=== PATIENT | male | born 1945 | race Caucasian/White ===

== ENCOUNTER 2019-06-22 12:40 | Outpatient (CLI) | payer MEDICARE, MEDICAID, SELFPAY ==
--- NOTE | 2019-06-22 12:50 | CT_ITS ---
WS: [id number] CTA ABDOMEN PELVIS TECHNIQUE: Noncontrast plus contrast enhanced CTA of the abdominal aorta and pelvis with coronal and sagittal reformatted images and additional MIP Images. CLINICAL INFORMATION: AAA COMPARISON: October 27, 2017 DLP: [id number] scans at [facility] use at least one of these dose optimization techniques: automat ed exposure control; mA and/or kV adjustment per patient size (includes targeted exams where dose is matched to clinical indication); or iterative reconstruction. FINDINGS: Prior postoperative changes abdominal aorta endograft placement with excluded aneurysm sac. Aneurysm sac today measures 4.6 x 4.9 x 4.8 cm unchanged since . Small lobulated endoleak along the di stal stent just above the bifurcation dorsally is unchanged. Stable protruding lobulated contrast opa cified aneurysm sac in this location. Bilateral common iliac extension of endograft. 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 This measures approximately 11 mm. Celiac and superior mesenteric arteries are patent. Both proximal renal arteries are patent. Normal r enal parenchymal enhancement. Unchanged bilateral renal cysts. Cholelithiasis. Fat-containing umbilical hernia. Calcified prostate. Stable small left adrenal adenoma. Chronic compr ession of the L1 vertebral body. CT/CT angio abdomen pelvis [id number] IMPRESSION: 1. Again seen is the abdominal aortic endograft with biiliac extension. Stable small lobulated endoleak along the dorsal stent just above the bifurcation. Th is is unchanged in appearance. 2. Excluded aneurysm sac is stable in size unchanged. 3. 11 mm right common iliac artery aneurysm along the distal stent is partiall y thrombosed today 4. Cholelithiasis. 5. Stable renal cysts.
[2019-06-22 14:00] LABS: Blood Urea Nitrogen 23 mg/dL (8-23)
[2019-06-22] MEDS: iodixanol 320 mg/mL 100mL Btl IV (14:13)
== END 2019-06-22 12:41 | disposition home or self-care (01) ==
LOC: RAD 12:41
PROVIDERS: Family Provider Family Medicine; PCP Family Medicine; Visit Provider Thoracic Surgery (Cardiothoracic Vascular Surgery)
DX: I71.4 Abdominal aortic aneurysm, without rupture (principal); K42.9 Umbilical hernia without obstruction or gangrene; D35.02 Benign neoplasm of left adrenal gland; I72.3 Aneurysm of iliac artery; N28.1 Cyst of kidney, acquired; K80.20 Calculus of gallbladder without cholecystitis without obstruction; T82.898A Other specified complication of vascular prosthetic devices, implants and grafts, initial encounter; Y83.2 Surgical operation with anastomosis, bypass or graft as the cause of abnormal reaction of the patient, or of later complication, without mention of misadventure at the time of the procedure
CPT/HCPCS: 74174; 82565; 84520; Q9967

== ENCOUNTER 2019-07-19 14:12 | Outpatient (CLI) | payer MEDICARE, MEDICAID, SELFPAY ==
--- NOTE | 2019-07-19 14:29 | XR_ITS ---
WS: [id number] LEFT HIP HISTORY: hip pain COMPARISON: None available. LEFT hip: No acute fracture or dislocation. Moderate osteophytic ridging around the acetabulum. Hyper trophic bone formation from the lateral acetabulum. There is mild narrowing of the hip joint. Sclerot ic focus projecting over the LEFT femoral neck measures 17 mm. This corresponds to an ossific density seen posterior to the femoral neck on a prior CT. May be a loose body within the joint. Could be con tiguous with the bone and an osteophyte. XR/XR hip LT 2-3V wo/w pel* [id number] IMPRESSION: 1. No hip fracture. 2. Mild hip joint arthritis. 3. Loose body versus osteophyte posterior to the LEFT femoral neck. Also seen on a prior CT from 06/22/2019.
== END 2019-07-19 14:13 | disposition home or self-care (01) ==
LOC: RADWPI 14:17
PROVIDERS: Family Provider Family Medicine; PCP Family Medicine; Visit Provider Family Medicine
DX: M25.752 Osteophyte, left hip (principal); M13.852 Other specified arthritis, left hip; M25.552 Pain in left hip
CPT/HCPCS: 73502

== ENCOUNTER 2019-10-19 15:22 | Inpatient (IN) | payer MEDICARE, MEDICAID, SELFPAY ==
[2019-10-19] VITALS (14 sets, daily range): BP systolic 153–188; BP diastolic 87–123; PULSE 60–96; RESP 12–26; TEMP 36.6–36.8; O2SAT 94–100; BMI 21.2
--- NOTE | 2019-10-19 15:23 | XR_ITS ---
WS: [id number] PORTABLE CHEST HISTORY: injury COMPARISON: 09/09/2017 Moderate size LEFT pneumothorax with subcutaneous emphysema. No midline shift. Small LEFT pleural effusion. RIGHT lung is clear. Cardiac size: Normal. Mediastinum/Aorta: Normal mediastinum. No osseous abnormality seen. Notified Meg Vallejo MD at 10/19/2019 3:38 PM. XR/XR chest 1V portable [id number] IMPRESSION: Moderate left-sided pneumothorax with subcutaneous emphysema. Small LEFT effusion with no rib fracture identified.
[2019-10-19] MEDS: morphine 4 mg/mL SDV 1 mL IVP (15:43)
[2019-10-19] MEDS: ondansetron 2 mg/ML SDV 2 mL 4 MG IVP (15:43)
[2019-10-19] MEDS: lidocaine 1% INJ 20 mL 10 ML INTRADERMA (16:07)
[2019-10-19] MEDS: fentaNYL 50 mcg/mL INJ 2mL 100 MCG IVP (16:07)
[2019-10-19 16:08] LABS: Basophils % 0.1 %; Hematocrit 45.8 % (42.0-52.0); Hemoglobin 14.8 g/dL (11.7-16.6); Lymphocytes # 1.3 10^3/uL (0.8-4.8); Lymphocytes % 10.7 %; Mean Corpuscular HGB Conc 32.3 g/dL (30.0-36.0); Mean Corpuscular Hemoglobin 30.6 pg (28.0-34.0); Mean Corpuscular Volume 94.8 fL (80-94); Monocytes # 1.3 10^3/uL (0.2-0.9); Monocytes % 10.8 %; Neutrophils # 9.3 10^3/uL (1.8-7.7); Neutrophils % 77.9 %; Nucleated Red Blood Cells % 0 %; Platelet Count 233 10^3/cmm (130-400); Red Blood Count 4.83 10^6/uL (4.1-5.3); Red Cell Distribution Width 15.8 % (12.1-15.1); White Blood Count 11.9 10^3/uL (4.0-10.0)
--- NOTE | 2019-10-19 16:09 | PC.NURSE ---
Dr. Cortez performed decompression of the left lung due to a pneumothorax.
--- NOTE | 2019-10-19 16:10 | XR_ITS ---
WS: [id number] PORTABLE CHEST HISTORY: post chest tube placement COMPARISON: Chest radiograph earlier the same day. Interval placement of a small bore LEFT chest tube. Catheter projects over the upper LEFT thorax. Ravindra y tiny residual apical pneumothorax. Much better aeration of the LEFT lung. No laceration identified. Small LEFT pleural effusion. Cardiac size: Normal. Mediastinum/Aorta: Mild atherosclerosis aorta. No osseous abnormality seen. XR/XR chest 1V portable [id number] IMPRESSION: Interval placement of a smallbore LEFT chest tube with near complete resolution of the pneumothorax.
[2019-10-19] MEDS: midazolam 1 mg/mL INJ 2 mL IVP (16:11)
[2019-10-19 16:18] LABS: INR 1.09 (0.8-1.2)
[2019-10-19 16:19] LABS: Partial Thromboplastin Time 28.3 SECONDS (23.9-36.7)
[2019-10-19 16:23] LABS: Alanine Aminotransferase 20 U/L (0-41); Alkaline Phosphatase 18 IU/L (40-130); Anion Gap 18.8 (5-19); Aspartate Amino Transferase 25 U/L (0-40); Blood Urea Nitrogen 25 mg/dL (8-23); Calcium 10.2 mg/dL (8.5-10.5); Carbon Dioxide 28 mmol/L (22-29); Chloride 98 mmol/L (98-107); Creatinine Clr Calc Pharmacy 61.3471; Globulin 2.3 g/dL (1.3-4.6); Glucose 136 mg/dL (65-115); Osmolality Calculated 291 mOsm/kg (285-295); Potassium 3.8 mmol/L (3.5-5.1); Sodium 141 mmol/L (136-145); Total Bilirubin 0.8 mg/dL (0.15-1.2); Total Protein 6.3 g/dL (6.6-8.7)
[2019-10-19] MEDS: pantoprazole DR 40 mg Tablet PO (16:25)
[2019-10-19] MEDS: enoxaparin 40 mg/0.4 mL Syringe SUBCUT (16:25)
--- NOTE | 2019-10-19 16:35 | P.OP_ITS ---
Operative Report Date of procedure: October 19, 2019 Pre-op Diagnosis: Traumatic left pneumothorax Post-op diagnosis: same Procedure Done: 13 Azerbaijani thoracic vent placement on left side Pathology: none sent Anesthesia: Local (6 cc 1% lidocaine infiltrated locally) Complications: None: Chest x-ray pending Condition: stable Disposition: ICU Procedure: After careful positioning, patient received a total of 1 mg of Versed and 50 micrograms of fentanyl slow IV with continuous monitoring of heart rate, blood pressure, EKG, and O2 saturation. His left anterior chest wall was then sterilely prepped and draped. 1% lidocaine was infiltrated in the mid clavicular line over the second intercostal space. A #11 scalpel blade was used to incise the skin. Next, a trocar 13 Azerbaijani thoracic vent was inserted through the incision and then by direct firm and controlled pressure into the [left/right] pleural space where the vent was advanced over the trocar as it was removed. There was a prompt return of air under pressure. The vent was secured to the skin with adhesive tabs and also with 2-0 silk suture. The vent was then connected to Pleur-evac suction where further air was evacuated. He noticed slowly improving and ease of respirations. Vital signs remained stable throughout the procedure. Dressings were secured. Breath sounds are now improved. Chest x-ray is pending. Dr. Drake supervised conscious sedation.
--- NOTE | 2019-10-19 16:38 | P.HP_ITS ---
Providers/Chief Complaint Admitting Physician: Marquez Cortez MD Primary Care Provider: Keith Rutledge DO Chief Complaint: TRAUMATIC PNEUMOTHORAX History of Present Illness Dieter Figueroa is a 74 year old male presents after falling against a trailer hitch 2 days ago striking his anterior lateral left side. He complains of soreness in the region and shortness of breath. Chest x-ray revealed approximately a 25 to 30% left pneumothorax. It is noted that the chest x-ray was labeled incorrectly and was reversed. We have confirmed the area of trauma as well as by exam some decreased breath sounds in the left apex. He is requiring oxygen mask as well as nasal cannula to maintain saturations. He is not tachypneic. Vital signs are stable. I have reviewed the x-ray and history personally with Dr. Drake who supervised conscious sedation for planned thoracic vent placement. I performed a previous EVAR for infrarenal AAA He has chronic back pain from a vertebral fracture years ago after falling from a deer stand. He has been on longstanding oxycodone and is managed by Dr. Rutledge. Review of Systems Const: Denies: fever or chills Card: Denies: chest pain or syncope Resp: Reports: shortness of breath; Denies: productive cough or coughing up blood GI: Denies: abdominal pain or vomiting blood Musc: Reports: neck pain and back pain Neuro: Denies: headache, weakness in extremities or dizziness Psych: Reports: depression; Denies: suicidal ideation Medications/Allergies Home Medications Medication Instructions Recorded Confirmed Last Taken Type albuterol sulfate 90 mcg/actuation 2 puff INHALATION Q6H PRN 07/18/19 10/05/19 Unknown History aerosol inhaler aspirin 325 mg tablet 325 mg PO QDAY 07/18/19 10/05/19 Unknown History budesonide-formoterol HFA 160 2 puff INHALATION BID 07/18/19 10/05/19 Unknown History mcg-4.5 mcg/actuation aerosol inhaler [id number]-[id number]-[id number] tab PO 07/18/19 10/05/19 Unknown History carvedilol 25 mg tablet 25 mg PO .COMPLEX 07/18/19 10/05/19 Unknown History clopidogrel 75 mg tablet 75 mg PO QDAY 07/18/19 10/05/19 Unknown History famotidine 20 mg tablet 20 mg PO BID 07/18/19 10/05/19 Unknown History fenofibrate nanocrystallized 145 145 mg PO .noon tab 07/18/19 10/05/19 Unknown History mg tablet isosorbide mononitrate 30 mg 30 mg PO QAM 07/18/19 10/05/19 Unknown History tablet,extended release 24 hr metformin 500 mg tablet 500 mg PO BID 07/18/19 10/05/19 Unknown History multivitamin 1 tab PO QAM 07/18/19 10/05/19 Unknown History nitroglycerin 0.4 mg sublingual 0.4 mg SUBLINGUAL Q5M PRN 07/18/19 10/05/19 Unknown History tablet oxycodone 10 mg tablet 10 mg PO .COMPLEX PRN 07/18/19 10/05/19 Unknown History sennosides 15 mg tablet 15 mg PO QDAY PRN 07/18/19 10/05/19 Unknown History sildenafil 100 mg tablet 100 mg PO QDAY PRN 07/18/19 10/05/19 Unknown History fluoxetine 20 mg capsule 20 mg PO BID #60 cap 08/25/19 10/05/19 Unknown Rx ibuprofen 800 mg tablet 800 mg PO Q6H PRN #120 tab 08/25/19 10/05/19 Unknown Rx omeprazole 20 mg capsule,delayed 20 mg PO DAILY #30 cap 08/25/19 10/05/19 Unknown Rx release Allergies Allergy/AdvReac Type Severity Reaction Status Date / Time No Known Allergies Allergy Verified 10/19/19 15:36 PFSH Acute PFSH: Medical History AAA (abdominal aortic aneurysm) Diabetes Hyperlipidemia Surgical History (Updated 10/19/19 @ 17:23 by Marquez Cortez MD) History of abdominal aortic aneurysm (AAA) repair Stented coronary artery left Social History Smoking and tobacco status: current every day smoker cigarettes Alcohol intake: never Vitals/I&O/Wt Last Vital Signs Temp 98.3 F 10/19/19 15:24 Pulse 96 10/19/19 15:24 Resp 18 10/19/19 16:07 BP 188/123 10/19/19 15:24 Pulse Ox 97 10/19/19 16:07 Weight last 48 hrs Weight 170 lb Physical Exam HENMT: COMMON NORMALS: normocephalic Neck/C-Spine: COMMON NORMALS: negative for full ROM CAROTIDS: Yes normal carotid upstroke Chest: COMMONS NORMALS: negative for inspection of chest normal (Mild contusion left anterior lateral chest wall. No subcutaneous emphysema.) CHES T: No crepitus, Yes localized rib tenderness with anteroposterior compression and No sternal flail Resp: COMMON NORMALS: negative for normal respiratory effort EFFORT & INSPECTION: Yes symmetric chest movement, Yes tachypneic, No actively coughing, No audible wheezes, No tracheal deviation and Yes prolonged expiratory phase Extremity: COMMON NORMALS: no pedal edema; negative for no clubbing, cyanosis or edema (Mild digital clubbing) Neuro: COMMON NORMALS: oriented x3, moves all extremities, no focal motor deficits and no sensory deficits noted Data : 10/19/19 15:52 10/19/19 15:52 A&P Assessment and plan (1) Pneumothorax: 20 to 30% traumatic left pneumothorax. We will plan for thoracic vent placement and observation in ICU overnight due to advanced COPD and ongoing dyspnea. 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
--- NOTE | 2019-10-19 17:12 | W.ED.SOB ---
HPI - SOB/Dyspnea General: Chief Complaint: Shortness of Breath/Dyspnea Stated Complaint: RIB PAIN , FALL, ? FX, DIMINISHED L SIDE Time Seen by Provider: 10/19/19 15:23 History of Present Illness: HPI Narrative: 74-year-old male comes in complaining of left rib pain. 2 days ago he fell against a ball hitch at about 2 in the morning landing on his left lower ribs since then he is progressively gotten more short of breath he denies hitting his head denies any other injuries no loss consciousness he does a known history of COPD and is a heavy smoker. Denies any other recent illness no upper respiratory symptoms cough cold fever sweats chills no urinary tract symptoms he is not noticed any blood in the urine is not had any hemoptysis. MD elicited complaint: shortness of breath, pain with inspiration and chest pain Pertinent past history: COPD Onset (ago): day(s) (2) Context: trauma/injury Timing: constant Severity: moderate Exacerbating factors: exertion, movement, coughing and deep breaths Relieving factors: rest and upright position Known history of: COPD Associated symptoms: Reports chest pain and lightheadedness; Deny chest congestion, fever(s), hemoptysis, syncope or vomiting Treatment prior to arrival: oxygen Review of Systems Const: Denies: fever ENMT: Denies: throat pain, ear pain, nasal discharge or nasal congestion Card: Reports: chest pain and lightheadedness; Denies: syncope Resp: Denies: coughing up blood or chest congestion GI: Denies: vomiting : Denies: flank pain, painful urination, urinary frequency or urinary urgency Skin/Breast: Denies: rash or itching [facility] PFSH: Medical History (Updated 10/21/19 @ 08:23 by Marquez Cortez MD) AAA (abdominal aortic aneurysm) Diabetes Hyperlipidemia Surgical History (Updated 10/19/19 @ 17:23 by Marquez Cortez MD) History of abdominal aortic aneurysm (AAA) repair Stented coronary artery left Social History Smoking and tobacco status: current every day smoker cigarettes Alcohol intake: never Physical Exam Const: COMMON NORMALS: no apparent distress GENERAL APPEARANCE: cooperative and comfortable ORIENTATION/CONSCIOUSNESS: Yes awake, Yes oriented to person, Yes oriented to place and Yes oriented to time HENMT: COMMON NORMALS: normocephalic, head/scalp atraumatic, hearing grossly normal bilaterally, external ears normal, EAC's normal, TM's normal bilaterally, nasal mucous membranes and turbinates normal, moist oral mucous membranes and oropharynx normal HEAD & SCALP: normocephalic and atraumatic NOSE: nasal mucous membranes and turbinates normal EXTERNAL EAR: Yes external ears normal EXTERNAL AUDITORY CANAL: EAC's normal TYMPANIC MEMBRANE: TM's normal bilaterally Eye: COMMON NORMALS: PERRL, EOMs intact bilaterally, conjunctivae normal and no scleral icterus CONJUNCTIVA: Yes conjunctivae normal PUPIL: Yes PERRL Neck/C-Spine: COMMON NORMALS: full ROM, no lymphadenopathy, supple and no JVD Lymph: LYMPHATIC: no lymphadenopathy noted and no lymphedema noted Resp: EFFORT & INSPECTION: Yes tachypneic, Yes respiratory distress, Yes labored, Yes retractions (Subcostal and intercostal on the left side) intercostal, Yes paradoxical thoraco-abdominal movements and No tracheal deviation AUSCULTATION: breath sounds absent on th left Cardio: COMMON NORMALS: no JVD, regular rate, regular rhythm and no murmurs RATE: regular rate RHYTHM: regular rhythm GI: COMMON NORMALS: soft to palpation and no hepatosplenomegaly AUSCULTATION: Yes normoactive bowel sounds PALPATION: Yes soft, No tender, No guarding and Yes no hepatosplenomegaly Extremity: COMMON NORMALS: normal to inspection, normal capillary refill, no clubbing, cyanosis or edema, no calf tenderness and no pedal edema Neuro: SENSORIUM/ORIENTATION: Yes oriented to person, Yes oriented to place and Yes oriented to time Skin: COMMON NORMALS: no rashes or lesions noted NARRATIVE SKIN EXAM: Nicotine staining on the second and third finger of the left hand GENERAL SKIN EXAM: no rashes or lesions noted Course Vital Signs: Vital signs: Vital Signs Temperature 97.7 F 10/21/19 10:52 Pulse Rate 60 10/21/19 10:52 Respiratory Rate 17 10/21/19 10:52 Blood Pressure 160/83 10/21/19 10:52 Pulse Oximetry 97 10/21/19 10:52 MDM - SOB/Dyspnea MDM Narrative: Medical decision making narrative: Patient about 2030% pneumothorax on the left. But he was tolerating it really well I called Dr. Cortez he was kind enough to come down and see the patient in conjunction with his he placed a thoracic vent to suction had good expansion of the lung will admit the patient to Dr. Cortez he will follow him in the ICU. Lab Data: Labs: Lab Results 10/19/19 10/19/19 10/19/19 Range/Units 15:52 15:52 15:52 WBC 11.9 H (4.0-10.0) 10^3/ uL RBC 4.83 (4.1-5.3) 10^6/u L Hgb 14.8 (11.7-16.6) g/dL Hct 45.8 (42.0-52.0) % MCV 94.8 H (80-94) fL MCH 30.6 (28.0-34.0) pg MCHC 32.3 (30.0-36.0) g/dL RDW 15.8 H (12.1-15.1) % Plt Count 233 (130-400) 10^3/c mm MPV 11.0 H (7.4-10.4) fL Neut % (Auto) 77.9 % Lymph % (Auto) 10.7 % [place] % (Auto) 10.8 % Eos % (Auto) 0.0 % Baso % (Auto) 0.1 % Neut # (Auto) 9.3 H (1.8-7.7) 10^3/u L Lymph # (Auto) 1.3 (0.8-4.8) 10^3/u L [place] # (Auto) 1.3 H (0.2-0.9) 10^3/u L Eos # (Auto) 0.0 (0.0-0.8) 10^3/u L Baso # (Auto) 0.0 (0.0-0.1) 10^3/u L Nucleated RBC % (a uto) 0 % Nucleated RBCs # 0.0 /100WBC PT 14.50 H (10.5-13.3) SECO NDS INR 1.09 (0.8-1.2) APTT 28.3 (23.9-36.7) SECO NDS Sodium 141 (136-145) mmol/L Potassium 3.8 (3.5-5.1) mmol/L Chloride 98 (98-107) mmol/L Carbon Dioxide 28 (22-29) mmol/L Anion Gap 18.8 (5-19) BUN 25 H (8-23) mg/dL Creatinine 1.2 (0.7-1.2) mg/dL Glucose 136 H (65-115) mg/dL Calculated Osmolal ity 291 (285-295) mOsm/k g Calcium 10.2 (8.5-10.5) mg/dL Total Bilirubin 0.8 (0.15-1.2) mg/dL AST 25 (0-40) U/L ALT 20 (0-41) U/L Alkaline Phosphata se 18 L (40-130) IU/L Total Protein 6.3 L (6.6-8.7) g/dL Albumin 4.0 (3.5-5.2) g/dL Globulin 2.3 (1.3-4.6) g/dL Discharge Plan Discharge Patient Disposition: Admitted As Inpatient Admit Provider: Marquez Cortez Clinical Impression: Pneumothorax, COPD (chronic obstructive pulmonary disease), Personal history of coronary artery disease Condition: Stable Discharge Orders: Discharge Order (Routine); Ordered 10/21/19 Ordered By: Marquez Cortez Referrals: [facility] [place]Outside] [facility] ([facility]) [Outside] Keith Rutledge DO [Primary Care Provider] - 4-7 days (Please call Wednesday to schedule a follow up appointment with Dr. Rutledge. Thank you [phone] ) Marquez Cortez MD [Physician] - 10/26/19 (Please call [facility] on Wednesday to schedule your appointment with Dr. Cortez. CXR single view the day of clinic visit....perform before clinic visit. Thank you [phone]) Discharge Diet: Usual diet Discharge Activity: Increase activity as tolerated Patient Instructions: Chronic Obstructive Pulmonary Disease (GEN), COPD Stoplight, Pneumothorax, Using Oxygen at Home Additional Instructions: May shower daily Attempt to refrain from tobacco use Discharge Date/Time: 10/19/19 17:15 Coding Level of Care Code ED Regional Loss Prevention Manager for Chg Fwd Exam Comprehensive
[2019-10-19] MEDS: fluoxetine 20 mg Capsule PO (17:45)
[2019-10-19] MEDS: lactated ringers 1,000 ML 50 ML IV (17:45)
[2019-10-19] MEDS: metformin 500 mg Tablet PO (17:45)
[2019-10-19] MEDS: carvedilol 25 mg Tablet PO (17:45)
[2019-10-19 18:02] LABS: Glucose Point of Care 109 mg/dL (70-110)
[2019-10-19] MEDS: oxyCODONE 5 mg IR Tab/Cap 10 MG PO ×2 (18:21→22:07)
[2019-10-19 20:12] LABS: Glucose Point of Care 160 mg/dL (70-110)
--- NOTE | 2019-10-19 21:50 | PC.NURSE ---
Dr Cortez updated on condition, patient okay to transfer to med-surg floor per physician.
--- NOTE | 2019-10-19 22:59 | PC.NURSE ---
Patient transported to Neo Velazquez RN to assume care. Bedside report given. VSS upon transfer, patient in no apparent distress. CT placed to suction per physician's orders.
[2019-10-20] VITALS (13 sets, daily range): BP systolic 135–178; BP diastolic 71–109; PULSE 61–89; RESP 16–22; TEMP 36.3–36.8; O2SAT 85–100
[2019-10-20 02:11] LABS: Basophils % 0.1 %; Eosinophils % 0.1 %; Hematocrit 43.9 % (42.0-52.0); Hemoglobin 14.2 g/dL (11.7-16.6); Lymphocytes # 1.6 10^3/uL (0.8-4.8); Lymphocytes % 14.7 %; Mean Corpuscular HGB Conc 32.3 g/dL (30.0-36.0); Mean Corpuscular Hemoglobin 30.5 pg (28.0-34.0); Mean Corpuscular Volume 94.4 fL (80-94); Mean Platelet Volume 10.8 fL (7.4-10.4); Monocytes # 1.4 10^3/uL (0.2-0.9); Monocytes % 13.1 %; Neutrophils # 7.7 10^3/uL (1.8-7.7); Neutrophils % 71.5 %; Nucleated Red Blood Cells % 0 %; Platelet Count 209 10^3/cmm (130-400); Red Blood Count 4.65 10^6/uL (4.1-5.3); Red Cell Distribution Width 15.9 % (12.1-15.1); White Blood Count 10.8 10^3/uL (4.0-10.0)
[2019-10-20 02:30] LABS: Anion Gap 13.8 (5-19); Blood Urea Nitrogen 28 mg/dL (8-23); Calcium 9.7 mg/dL (8.5-10.5); Carbon Dioxide 31 mmol/L (22-29); Chloride 99 mmol/L (98-107); Creatinine Clr Calc Pharmacy 61.3471; Glucose 155 mg/dL (65-115); Osmolality Calculated 290 mOsm/kg (285-295); Potassium 3.8 mmol/L (3.5-5.1); Sodium 140 mmol/L (136-145)
[2019-10-20] MEDS: multivitamin therapeutic Tablet 1 TAB PO (05:05)
[2019-10-20] MEDS: isosorbide mononitrate ER 30 mg Tablet PO (05:05)
[2019-10-20] MEDS: oxyCODONE 5 mg IR Tab/Cap 10 MG PO ×3 (05:05→23:55)
--- NOTE | 2019-10-20 06:00 | XR_ITS ---
WS: [id number] PORTABLE CHEST HISTORY: Status post thoracic vent for traumatic left pneumothorax COMPARISON: 10/19/2019 Small bore LEFT thoracostomy tube remains. Very tiny LEFT apical pneumothorax. No midline shift. Hyperexpanded lungs and emphysema. Small bilateral pleural effusions. Cardiac size: Normal. Mediastinum/Aorta: Mild atherosclerosis aorta. Improving subcutaneous emphysema on the LEFT. XR/XR chest 1V portable [id number] IMPRESSION: 1. LEFT thoracostomy tube unchanged in position with very tiny LEFT apical pne umothorax persisting. 2. Improving LEFT subcutaneous emphysema.
[2019-10-20 06:38] LABS: Glucose Point of Care 112 mg/dL (70-110)
[2019-10-20] MEDS: fluoxetine 20 mg Capsule PO ×2 (08:06→17:22)
[2019-10-20] MEDS: clopidogrel 75 mg Tablet PO (08:06)
[2019-10-20] MEDS: aspirin 325 mg Tablet PO (08:06)
[2019-10-20] MEDS: metformin 500 mg Tablet PO ×2 (08:06→17:22)
--- NOTE | 2019-10-20 08:43 | P.PN_ITS ---
Subjective Subjective: Interval history: First morning status post thoracic vent placement for traumatic 30% left apical pneumothorax. Uneventful night. Currently on nasal cannula O2 saturations around 90%. No air leak noted from the thoracic vent. Insertion site clean. Chest wall stable. Vitals/I&O/Wt Last Vital Signs Temp 97.4 F L 10/20/19 04:26 Pulse 64 10/20/19 08:00 Resp 18 10/20/19 08:00 BP 135/71 10/20/19 08:00 Pulse Ox 89 L 10/20/19 08:00 0410/20/19 10/20/19 22:59 06:59 14:59 Intake Total 240 / 240 Output Total 0 / 0 100 / 100 Balance 240 / 240 -100 / -100 Weight last 48 hrs Weight 170 lb Physical Exam Chest: COMMONS NORMALS: inspection of chest normal (Thoracic vent insertion site is clean and intact. Minimal subcutaneous emphysema which is also improving on chest x-ray.) Resp: COMMON NORMALS: normal respiratory effort EFFORT & INSPECTION: Yes able to speak in complete sentences OTHER: Breath sounds are a bit distance bilaterally related to his advanced COPD, though otherwise clear. Data : 10/20/19 01:57 10/20/19 01:57 A&P Assessment and plan (1) Pneumothorax: Status post thoracic vent for traumatic left pneumothorax I will remove the thoracic vent from active Pleur-evac suction as there is been no air leak overnight. I will repeat the chest x-ray later today. Mr. Figueroa states he lives along with that his son would be staying with him for the next few days. I think would be prudent to have home health services available. I also would consider leaving the thoracic vent and through the weekend and reassessing the person a week with planned removal. Status: Acute Attestations Medical Necessity Statement*: Thoracic vent has now been removed from active suction. We will reassess later this afternoon to possibly consider discharge with thoracic vent in place at home health services can be appropriate range and we can determine oxygen requirements at home. He has advanced COPD. 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
--- NOTE | 2019-10-20 10:09 | PC.CHAP ---
Pastoral Care Encounter/Spiritual Assessment Type of Contact [] Declined sales ledger administrator visit [] Patient/Family/Request visit [] Outpatient visit [] Follow-up visit [] Physician referral [] Code/Alert [x] Routine visit [] Staff referral [] Actively dying [] Patient sleeping [] Family support [] [] Out of room [] Palliative care [] [] Receiving care in room [] Pre-surgical visit [] Trauma [] Long length of stay [] ICU visit [] Other: Relational/Emotional Strength [] Patient feels connected with others/family/visitors/staff [] Distress [] Loneliness/isolation [] Abandonment Spirituality of Patient [] Person of Ida [] Attends Sikh of their Ida [x] Believes in Prayer [] Reads Bible or Shinto materials [] There are Spiritual issues to be addressed Claims Agent Right Of Way Interventions [x] Prayer [] Active listening [] Non-anxious presence [] Spiritual/emotional support [] Crisis/trauma care [] Spiritual counseling [] Bereavement support [] Provided bereavement packet [] Provided Bible/devotional materials [] Provided toy/stuffed animal, coloring book to patient or family member [] Provided Communion [] Anointing/[place] [] Salvation [x] Completed spiritual assessment [] Other: Impact on Illness or Injury [] Angry [] Fearful [] Anxious [] Often cries [] Exhaustion [] Unable to work [] Unable to attend zoroastrian [] Unable to walk/stand [] Unable to read [] Unable to drive [] Unable to eat/drink [] Unable to sleep [] Unable to be with family [] Patient intubated [] Other: Summary Patient rest well. Time spent with patient 10 min
--- NOTE | 2019-10-20 10:12 | PC.NURSE ---
Patient wearing c-pap while taking a nap. Encouraged patient to use while he took naps at home and while sleeping at night. Patient verbalized understanding.
[2019-10-20] MEDS: carvedilol 25 mg Tablet PO ×2 (10:55→17:22)
[2019-10-20 11:31] LABS: Glucose Point of Care 136 mg/dL (70-110)
[2019-10-20 12:01] LABS: Glucose Point of Care 115 mg/dL (70-110)
--- NOTE | 2019-10-20 14:56 | XR_ITS ---
WS: [id number] PORTABLE CHEST HISTORY: removal of chest tube COMPARISON: 10/20/2019 Interval removal of the small bore LEFT thoracostomy tube. Very tiny LEFT apical pneumothorax is iden tified. Subcutaneous air has nearly resolved. Hyperexpanded lungs with chronic interstitial thickening. Small RIGHT pleural effusion. Cardiac size: Mildly enlarged cardiac silhouette. Mediastinum/Aorta: Mild atherosclerosis aorta. Rib fracture now identified. Rib fractures probably involving the sixth rib laterally. XR/XR chest 1V portable [id number] IMPRESSION: 1. Interval removal of thoracostomy tube with very tiny apical pneumothorax. 2. LEFT lateral sixth rib fracture now identified.
--- NOTE | 2019-10-20 15:11 | P.PN_ITS ---
Subjective Subjective: Interval history: Doing well today. Thoracic vent removed. Vitals/I&O/Wt Last Vital Signs Temp 98.3 F 10/20/19 12:00 Pulse 82 10/20/19 12:00 Resp 20 H 10/20/19 12:00 BP 178/109 10/20/19 12:00 Pulse Ox 98 10/20/19 12:00 10/20/19 10/20/19 10/20/19 06:59 14:59 22:59 Intake Total 240 / 240 200 / 200 Output Total 0 / 0 100 / 100 Balance 240 / 240 100 / 100 Weight last 48 hrs Weight 170 lb Physical Exam Resp: EFFORT & INSPECTION: Yes symmetric chest movement, No actively coughing, Yes uses accessory muscles, Yes audible wheezes (on left s/p vent removal) and No tracheal deviation OTHER: post vent removal chest x-ray (which again is reversed)reveals godd lung expansion with a small apical pneumothorax Data : 10/20/19 01:57 10/20/19 01:57 A&P Assessment and plan (1) Pneumothorax: Thoracic vent removal. Bedrest and continued O2 by nasal cannula. CXR in am. Plan for d/c tomorrow with home health and home oxygen. 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
[2019-10-20 17:05] LABS: Glucose Point of Care 113 mg/dL (70-110)
[2019-10-20] MEDS: lactated ringers 1,000 ML 50 ML IV (17:22)
[2019-10-20] MEDS: albuterol 8 gm MDI 2 PUFF INHALATION (18:00)
[2019-10-20 21:10] LABS: Glucose Point of Care 116 mg/dL (70-110)
[2019-10-21] VITALS (10 sets, daily range): BP systolic 142–169; BP diastolic 74–83; PULSE 60–88; RESP 17–20; TEMP 36.1–36.9; O2SAT 96–99
--- NOTE | 2019-10-21 06:00 | XRR_ITS ---
PROCEDURE INFORMATION: Exam: XR Chest, 1 View Exam date and time: 10/21/2019 5:50 AM Age: 74 years old Clinical indication: Shortness of breath; Additional info: Thoracic vent TECHNIQUE: Imaging protocol: XR of the chest Views: 1 view. COMPARISON: [place] XR chest 1V portable [id number] 10/20/2019 3:00 PM FINDINGS: Lungs: There are increased interstitial markings seen in the lower hemithoraces bilaterally. Pleural space: There is a tiny residual medial left pneumothorax. Heart/Mediastinum: Unremarkable. No cardiomegaly. Bones/joints: There is a fracture of the 6th rib on the left laterally. Soft tissues: Trace subcutaneous emphysema is again seen along the left lateral chest wall. XR/XR chest 1V portable [id number] IMPRESSION: 1. Increased interstitial markings seen bilaterally may represent chronic pulmonary fibrosis although mild pulmonary edema could have this appearance. 2. Fracture of the 6th rib on the left. 3. Mild residual subcutaneous emphysema along the left lateral chest wall 4. Tiny residual left medial pneumothorax.
[2019-10-21] MEDS: oxyCODONE 5 mg IR Tab/Cap 10 MG PO ×2 (06:01→13:40)
[2019-10-21] MEDS: multivitamin therapeutic Tablet 1 TAB PO (06:02)
[2019-10-21] MEDS: isosorbide mononitrate ER 30 mg Tablet PO (06:02)
[2019-10-21 06:37] LABS: Glucose Point of Care 114 mg/dL (70-110)
--- NOTE | 2019-10-21 08:22 | P.DS_ITS ---
Discharge Providers Date of Admission: 10/19/19 16:22 Date of Discharge: October 21, 2019 Attending Provider at Admission: Marquez Cortez MD Attending Provider at Discharge: Marquez Cortez MD Primary Care Provider: Keith Rutledge DO Diagnoses at Discharge Discharge Diagnosis (1) Pneumothorax: Status: Acute Problem details: Presented with traumatic left pneumothorax after fall with sixth rib fracture Reason for Visit Reason for Visit: Reason For Visit: TRAUMATIC PNEUMOTHORAX Hospital Course Discharge Summary: 74-year-old gentleman admitted on November 17 after presenting with complaints of left-sided chest discomfort and shortness of breath. He was found to have a 6th left rib fracture and approximately 30% left pneumothorax. Apparently, patient had fallen across a trailer hitch about a day and a half prior to presentation. He was initially treated with placement of a 13 [place] left anterior chest wall thoracic vent with subsequent resolution of his pneumothorax with active Pleur- evac suction. This was eventually placed to waterseal and then removed. He has a very small tiny apical pneumothorax which is been unchanged. He does qualify for oxygen at home after evaluation. Requirement is 3 L nasal cannula. His vital signs have been stable. Pain is been under good control with his routine medication of oxycodone which he takes chronically for back pain. He will be discharged home today with home health services in stable condition. Home oxygen will be arranged. He will be scheduled to follow-up with me on October 25 with a chest x-ray. At the time of discharge he is in stable condition. Physical Exam Chest: COMMONS NORMALS: inspection of chest normal (Subcutaneous emphysema has almost completely resolved.) CHEST: Yes localized rib tenderness with anteroposterior compression Location: 6th rib Resp: AUSCULTATION: abnormal I/E ratio, no crackles and bronchial breath sounds on the left Discharge Data Data Completed and Pending: Completed Studies During Hospitalization Category Date Time Status XR chest 1V hamzah ble [id number] Routine Exams 10/20/19 06:00 Completed XR chest 1V hamzah ble [id number] Routine Exams 10/21/19 06:00 Completed XR chest 1V hamzah ble [id number] Stat Exams 10/19/19 15:23 Completed XR chest 1V hamzah ble [id number] Stat Exams 10/19/19 16:10 Completed XR chest 1V hamzah ble [id number] Stat Exams 10/20/19 14:56 Completed Labs from last 24 hours 10/21/19 10/20/19 10/20/19 06:32 21:05 17:01 POC Glucose 114 116 113 10/20/19 10/20/19 11:52 11:26 POC Glucose 115 136 Vitals: Last Vital Signs Temp 97.7 F 10/21/19 07:45 Pulse 60 10/21/19 07:45 Resp 17 10/21/19 07:45 BP 155/75 10/21/19 07:45 Pulse Ox 97 10/21/19 07:45 Discharge Plan Discharge Patient Disposition: Home Health Service Condition: Stable Prescriptions: Continued carvedilol 25 mg tablet 25 mg PO .COMPLEX RF: 0 clopidogrel [Plavix] 75 mg tablet 75 mg PO DAILY RF: 0 isosorbide mononitrate 30 mg tablet extended release 24 hr 30 mg PO QAM RF: 0 metformin 500 mg tablet 500 mg PO BID RF: 0 multivitamin Tablet 1 tab PO QAM RF: 0 Laxative (sennosides) 15 mg tablet 15 mg PO QDAY PRN (Reason: Constipation) RF: 0 drehiqg-tdvrjvfug-ynub Tablet 1 tab PO DAILY RF: 0 aspirin 325 mg tablet 325 mg PO DAILY RF: 0 oxycodone 10 mg tablet 10 mg PO .COMPLEX PRN (Reason: pain) RF: 0 nitroglycerin 0.4 mg tablet, sublingual 0.4 mg SUBLINGUAL Q5M PRN (Reason: Chest Pain) RF: 0 famotidine 20 mg tablet 20 mg PO BID RF: 0 fenofibrate nanocrystallized 145 mg tablet 145 mg PO .noon RF: 0 albuterol sulfate [Ventolin HFA] 90 mcg/actuation HFA aerosol inhaler 2 puff INHALATION Q6H PRN (Reason: Shortness Of Breath) RF: 0 Symbicort 160-4.5 mcg/actuation HFA aerosol inhaler 2 puff INHALATION BID RF: 0 sildenafil [Viagra] 100 mg tablet 100 mg PO QDAY PRN (Reason: ERECTILE DIS) RF: 0 ibuprofen 800 mg tablet 800 mg PO Q6H PRN (Reason: pain) Qty: 120 RF: 4 fluoxetine 20 mg capsule 20 mg PO BID Qty: 60 RF: 5 omeprazole 20 mg capsule,delayed release(DR/EC) 20 mg PO DAILY Qty: 30 RF: 6 Discharge Orders: Discharge Order (Routine); Ordered 10/21/19 Ordered By: Marquez Cortez Other Ambulatory Orders: DME: Home CPM (Order) Location: None Selected Ordered By: Marquez Cortez Referrals: [facility] ([facility]) [Outside] Keith Rutledge DO [Primary Care Provider] - Marquez Cortez MD [Physician] - 10/26/19 (CXR single view the day of clinic visit....perform before clinic visit) Discharge Diet: Usual diet Discharge Activity: Increase activity as tolerated Activity Restrictions/Additional Instructions: May shower daily Attempt to refrain from tobacco use Discharge Attestations Time Spent in Discharge Care*: less than 30 min Specific Discharge Activities: Specific discharge activities: educating p atient, educating and/or supporting family/caregiver, discussing with pcp/other providers, discussing with patient case coordinator/social workers/dc planners and documenting/other paperwork Time Spent in Smoking Cessation: Time spent discussing smoking cessation with patient: 3 to 10 minutes Status at Discharge: Cognitive status at discharge: cognitively intact , Behavioral status at discharge: cooperative , Overall status at discharge: patient is progressing back to baseline Quality Metrics Clinical Quality Measures During this hospital stay, did patient experience: None Coding Level of Care Code 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
[2019-10-21] MEDS: metformin 500 mg Tablet PO (08:36)
[2019-10-21] MEDS: fluoxetine 20 mg Capsule PO (08:36)
[2019-10-21] MEDS: aspirin 325 mg Tablet PO (08:36)
[2019-10-21] MEDS: clopidogrel 75 mg Tablet PO (08:36)
[2019-10-21 11:30] LABS: Glucose Point of Care 132 mg/dL (70-110)
[2019-10-21] MEDS: carvedilol 25 mg Tablet PO (13:43)
--- NOTE | 2019-10-21 13:43 | PC.NURSE ---
Patient is ready to go home, Piid out, intact. Patient given pain medication for pain, of 5-6 on number scale. Patient refused to take a shower and rec a bed bath. Chest tube site dressing removed, site cleaned and received betadine to area, vasaline dressing applied and covered with coverderm. Patient has his home O2 in room and rec oxygen safety instructions. Pt voiced understanding.
== END 2019-10-21 15:03 | disposition home health service (06) | DRG 200 ==
LOC: ER 16:25 → ICU 16:35 → MEDSURG 22:46
PROVIDERS: Admitting Provider Thoracic Surgery (Cardiothoracic Vascular Surgery); Emergency Provider Family Medicine; Family Provider Family Medicine; PCP Family Medicine; Visit Provider Thoracic Surgery (Cardiothoracic Vascular Surgery)
DX: S27.0XXA Traumatic pneumothorax, initial encounter (principal); S22.32XA Fracture of one rib, left side, initial encounter for closed fracture; W19.XXXA Unspecified fall, initial encounter; G89.29 Other chronic pain; M54.9 Dorsalgia, unspecified; Z79.891 Long term (current) use of opiate analgesic; E11.9 Type 2 diabetes mellitus without complications; E78.5 Hyperlipidemia, unspecified; I25.10 Atherosclerotic heart disease of native coronary artery without angina pectoris; Z95.5 Presence of coronary angioplasty implant and graft; F17.210 Nicotine dependence, cigarettes, uncomplicated
CPT/HCPCS: 12345; 36415; 36416; 36600; 71045; 71275; 73502; 80048; 80051; 80053; 82810; 82962; 83986; 84484; 85025; 85378; 85610; 85730; 93005; 93306; 93970; 94640; 94664; 94762; 96372; 96375; 97110; 97116; 97161; 99282; J1650; J1815; J1940; J2001; J2250; J2270; J2405; J3010; Q9967

== ENCOUNTER 2019-10-24 12:24 | Inpatient (IN) | payer MEDICARE, MEDICAID, SELFPAY ==
[2019-10-24] VITALS (7 sets, daily range): BP systolic 171–187; BP diastolic 82–109; PULSE 62–87; RESP 18–20; TEMP 36.6–36.8; O2SAT 96–100; BMI 21.2
--- NOTE | 2019-10-24 12:52 | XR_ITS ---
WS: [id number] XR hip LT 2-3V wo/w pel* [id number] REASON FOR EXAM: fall. FINDINGS: Left hip was evaluated with 3 projections. We again note the bone densities along the lower neck of the femur on the left also a bone density is seen along the superior symphysis pubis by on the left most likely these are bone islands. Fine ther e is no fractures seen in the left hip. There was no definite fractures noted in the ilium, ischium, and pubis. The overall appearance of the left hip is similar to that previous exam July 19, 2019. XR/XR hip LT 2-3V wo/w pel* [id number] IMPRESSION: No definite fractures of the left hip or left pelvis. There is bone density seen in the symphysis pubic by and lower neck of the femu r consistent with bone islands.
--- NOTE | 2019-10-24 12:52 | XR_ITS ---
WS: [id number] XR chest 1V portable [id number] REASON FOR EXAM: s/p fall with rib fracure and pneumothorax. FINDINGS: The subcutaneous emphysema is clearing.. The fracture of the sixth rib remains in good position as compared to October 21, 2019. There is low-grade left pleural effusion seen. The heart and mediastinum are normal. XR/XR chest 1V portable [id number] IMPRESSION: Resolving subcutaneous emphysema. Fracture of the sixth rib No pneumothorax. There is small amount of left pleural effusion. A small nondisplaced fracture o f the eighth rib at its angle is also noted.
--- NOTE | 2019-10-24 12:54 | ECG_ITS ---
Measurements Intervals [place] Rate: 70 P: 31 NJ: 149 QRS: 28 QRSD: 140 T: 194 QT: 400 QTc: 433 SINUS RHYTHM POSSIBLE LEFT ATRIAL ENLARGEMENT [-0.1mV P WAVE IN V1/V2] INTRAVENTRICULAR CONDUCTION DELAY [130+ ms QRS DURATION] LATERAL MYOCARDIAL INFARCTION , OF INDETERMINATE AGE [40+ ms Q WAVE AND/OR ST/T ABNORMALITY IN I/aVL/V5/V6] INFERIOR MYOCARDIAL INFARCTION , PROBABLY OLD WITH POSTERIOR EXTENSION [40+ ms WAVE AND/OR ST/T ABNORMALITY IN II/aVFPROMINE Compared to ECG 09/09/2017 10:06:29 Intraventricular conduction delay now present Left anterior fascicular block no longer present Myocardial infarct finding still present Electronically Signed On 10-24-2019 17:15:49 CDT by Paradise Rucker M.D. [email or web address]
[2019-10-24 13:11] LABS: Basophils # 0.1 10^3/uL (0.0-0.1); Basophils % 0.6 %; Eosinophils # 0.3 10^3/uL (0.0-0.8); Eosinophils % 3.4 %; Hematocrit 43.2 % (42.0-52.0); Lymphocytes # 1.3 10^3/uL (0.8-4.8); Lymphocytes % 14.8 %; Mean Corpuscular HGB Conc 32.4 g/dL (30.0-36.0); Mean Corpuscular Hemoglobin 30.8 pg (28.0-34.0); Mean Corpuscular Volume 95.2 fL (80-94); Mean Platelet Volume 10.4 fL (7.4-10.4); Monocytes # 0.7 10^3/uL (0.2-0.9); Monocytes % 8.2 %; Neutrophils # 6.3 10^3/uL (1.8-7.7); Neutrophils % 72.8 %; Nucleated Red Blood Cells % 0 %; Platelet Count 261 10^3/cmm (130-400); Red Blood Count 4.54 10^6/uL (4.1-5.3); Red Cell Distribution Width 15.5 % (12.1-15.1); White Blood Count 8.7 10^3/uL (4.0-10.0)
[2019-10-24 13:23] LABS: D Dimer 1.92 ug/mIFEU (0-0.59)
[2019-10-24 13:28] LABS: Troponin(5th) Baseline 54 ng/mL (0-15)
--- NOTE | 2019-10-24 13:48 | CT_ITS ---
WS: [id number] CT CHEST ANGIOGRAPHY WITH REFORMATS HISTORY: sob, high pre-test probability TECHNIQUE: Contiguous axial images are obtained through the chest during arterial injection of intrav enous contrast. Images are reconstructed to evaluate the pulmonary arteries. MIP imaging also reviewe d. All CT scans at [facility] use at least one of these dose optimization techniques: aut omated exposure control; mA and/or kV adjustment per patient size (includes targeted exams where dose is matched to clinical indication); or iterative reconstruction. CONTRAST: Omnipaque 350; 95 mL IV. DLP: 678.08 mGy.cm COMPARISON: 10/24/2019 Very good opacification and enhancement of the pulmonary arteries. No central pulmonary embolism. The main pulmonary artery is enlarged measuring 4.0 cm. Segmental and subsegmental filling defect defect s are present in the lower lobe pulmonary arteries bilaterally. Small layering bilateral pleural effusions. Very tiny residual LEFT pneumothorax is identified on rodolfo ge 66 of series 4. No pulmonary contusion or laceration. Pulmonary injury could be obscured by the pl eural fluid. Heart size is moderately enlarged. Moderate LEFT heart enlargement. Tricuspid regurgitation into the hepatic veins. Mild atherosclerosis of aorta. There is diffuse soft tissue anasarca. Significant soft tissue anasarca with left-sided subcutaneous emphysema. Soft tissue edema extends into the peritoneal cavity. Cholelithiasis. There is a partially visualized endovascular stent grafting of aorta. Remote L1 compression fracture. Acute lateral sixth rib fracture. There are additional fractures whic h are very poorly visualized involving the seventh and eighth ribs also. Notified Isadora Felix MD [facility] [facility] [place] 10/24/2019 3:[address]/CT angio chest PE protcl [id number] IMPRESSION: 1. Subsegmental and segmental bilateral lower lobe pulmonary emboli. 2. Small bilateral pleural effusions with diffuse soft tissue edema and anasa rca over the thorax and upper abdomen. 3. Very tiny residual LEFT pneumothorax. 4. Acute rib fractures involving the LEFT sixth, seventh and eighth ribs. 5. No pulmonary contusion. 6. Moderate enlargement of the LEFT heart. 7. Tricuspid regurgitation into hepatic veins.
[2019-10-24 13:53] LABS: Alanine Aminotransferase 18 U/L (0-41); Albumin Level 3.5 g/dL (3.5-5.2); Alkaline Phosphatase 15 IU/L (40-130); Aspartate Amino Transferase 24 U/L (0-40); Blood Urea Nitrogen 23 mg/dL (8-23); Carbon Dioxide 27 mmol/L (22-29); Chloride 96 mmol/L (98-107); Glucose 117 mg/dL (65-115); Osmolality Calculated 282 mOsm/kg (285-295); Sodium 137 mmol/L (136-145); Total Bilirubin 0.8 mg/dL (0.15-1.2); Total Protein 5.5 g/dL (6.6-8.7)
--- NOTE | 2019-10-24 14:39 | W.ED.SOB ---
HPI - SOB/Dyspnea General: Chief Complaint: Shortness of Breath/Dyspnea Stated Complaint: SOB Time Seen by Provider: 10/24/19 12:41 Source: patient Mode of arrival: EMS Limitations: no limitations History of Present Illness: HPI Narrative: 74-year-old gentleman was recently admitted and managed as a case of a pneumothorax secondary to rib fracture from a fall. He had a chest tube placed by the cardiac surgeon and was discharged home 3 days ago after the tube was taken out and resolution of the pneumothorax. Patient states that he was initially feeling better but started having progressively worsening shortness of breath that started 1 or 2 days ago. He also has left-sided chest pain. Rib fractures are on the left. He denies a fever. Because of the symptoms he was brought in to be evaluated. MD elicited complaint: shortness of breath Pertinent past history: COPD and other (recent pneumothorax) Timing: constant Severity: moderate Exacerbating factors: exertion Relieving factors: nothing Associated symptoms: Reports chest pain; Deny abdominal pain, fever(s), nausea, polydipsia, polyuria or vomiting Treatment prior to arrival: oxygen Review of Systems General: Reports: 10 or more systems reviewed and unremarkable except in HPI and below Const: Denies: fever, chills or body aches ENMT: Denies: throat pain, enlarged tonsils, painful swallowing, hoarseness, mouth pain or swelling of lips/tongue Card: Reports: chest pain Resp: Reports: shortness of breath GI: Denies: abdominal pain, nausea or vomiting : Denies: flank pain, painful urination, urinary frequency, urinary urgency or urinary hesitancy Musc: Denies: neck pain, back pain or extremity swelling Skin/Breast: Denies: rash, itching or redness Neuro: Denies: headache, numbness in extremities or weakness in extremities Endo: Denies: excessive urination, excessive thirst or tired all the time [facility] ED PFSH: Medical History (Updated 10/24/19 @ 19:24 by Quin Valentin MD) AAA (abdominal aortic aneurysm) (atherosclerosis) CAD (coronary artery disease) COPD (chronic obstructive pulmonary disease) COPD (chronic obstructive pulmonary disease) Diabetes Emphysema of lung Enrolled in chronic care management Erectile dysfunction GERD (gastroesophageal reflux disease) H/O Massey's palsy Hyperlipidemia Hypertension Surgical History (Updated 10/24/19 @ 19:24 by Quin Valentin MD) H/O arthroscopic knee surgery History of abdominal aortic aneurysm (AAA) repair Stented coronary artery left Social History Smoking and tobacco status: current every day smoker cigarettes Alcohol intake: never Physical Exam Const: COMMON NORMALS: no apparent distress, average body habitus, oriented x3, no limitations, healthy appearing, alert and well nourished HENMT: COMMON NORMALS: normocephalic, head/scalp atraumatic and moist oral mucous membranes HEAD & SCALP: normocephalic and atraumatic Eye: COMMON NORMALS: PERRL, EOMs intact bilaterally, conjunctivae normal and no scleral icterus CONJUNCTIVA: Yes conjunctivae normal PUPIL: Yes PERRL Neck/C-Spine: COMMON NORMALS: full ROM, supple, no meningeal signs, no JVD and no carotid bruits Chest: COMMONS NORMALS: palpation of chest normal OTHER: Wound dressing upper left chest wall. Tenderness left lateral chest wall in the mid to lower portion. Resp: COMMON NORMALS: normal respiratory effort, no retractions, no use of accessory muscles, clear to auscultation bilaterally and percussion normal AUSCULTATION: clear to auscultation bilaterally and diminished lung sounds PERCUSSION: percussion normal Cardio: COMMON NORMALS: no JVD, regular rate, regular rhythm, S1 normal heart sound, S2 normal heart sound, no gallops, no clicks, no murmurs, no rub and peripheral pulses 2+ throughout RATE: regular rate RHYTHM: regular rhythm HEART SOUNDS: S1 normal and S2 normal PERIPHERAL PULSES: pulses 2+ throughout GI: COMMON NORMALS: normal to inspection, nondistended, normoactive bowel sounds, soft to palpation, non-tender, no hepatosplenomegaly, no masses and no bruits PALPATION: Yes soft and Yes no hepatosplenomegaly : COMMON NORMALS: Yes no CVA tenderness BLADDER/KIDNEY EXAM: Yes no CVA tenderness Back/Pelvis: COMMON NORMALS: no CVA tenderness Extremity: COMMON NORMALS: normal to inspection, full ROM, normal capillary refill, no calf tenderness and no pedal edema Neuro: COMMON NORMALS: oriented x3 SENSORIUM/ORIENTATION: Yes alert MENINGEAL SIGNS: Yes no meningeal signs Skin: COMMON NORMALS: no rashes or lesions noted, no wounds, skin turgor normal, no jaundice, no petechiae and no mottling GENERAL SKIN EXAM: no rashes or lesions noted and turgor normal Course Consultations: Consultation #1: Dr. Valentin, hospitalist. She kindly accepted the patient to her service. Vital Signs: Vital signs: Vital Signs Temperature 98.2 F 10/24/19 12:28 Pulse Rate 87 10/24/19 18:33 Respiratory Rate 18 10/24/19 18:33 Blood Pressure 176/105 10/24/19 18:33 Pulse Oximetry 99 10/24/19 18:33 MDM - SOB/Dyspnea MDM Narrative: Medical decision making narrative: 74-year-old male who was recently admitted here following a fall and rib fractures with a pneumothorax. He initially was admitted and discharged a few days ago for the pneumothorax and during his hospital admission he had a chest tube placed which was removed prior to discharge. He comes back today with chest pain or shortness of breath. Evaluation in the ED today shows he has a pneumothorax, signs of fluid overload and an enlarged heart. He is therefore admitted for further management. He was given a dose of enoxaparin in the ED. Medical Records: Attestation: I reviewed the patient's medical records. Lab Data: Labs: Lab Results 10/24/19 10/24/19 10/24/19 Range/Units 13:05 13:05 13:05 WBC 8.7 (4.0-10.0) 10^3/ uL RBC 4.54 (4.1-5.3) 10^6/u L Hgb 14.0 (11.7-16.6) g/dL Hct 43.2 (42.0-52.0) % MCV 95.2 H (80-94) fL MCH 30.8 (28.0-34.0) pg MCHC 32.4 (30.0-36.0) g/dL RDW 15.5 H (12.1-15.1) % Plt Count 261 (130-400) 10^3/c mm MPV 10.4 (7.4-10.4) fL Neut % (Auto) 72.8 % Lymph % (Auto) 14.8 % [place] % (Auto) 8.2 % Eos % (Auto) 3.4 % Baso % (Auto) 0.6 % Neut # (Auto) 6.3 (1.8-7.7) 10^3/u L Lymph # (Auto) 1.3 (0.8-4.8) 10^3/u L [place] # (Auto) 0.7 (0.2-0.9) 10^3/u L Eos # (Auto) 0.3 (0.0-0.8) 10^3/u L Baso # (Auto) 0.1 (0.0-0.1) 10^3/u L Nucleated RBC % (a uto) 0 % Nucleated RBCs # 0.0 /100WBC D-Dimer 1.92 H (0-0.59) ug/mIFE U Sodium 137 (136-145) mmol/L Potassium 4.0 (3.5-5.1) mmol/L Chloride 96 L (98-107) mmol/L Carbon Dioxide 27 (22-29) mmol/L Anion Gap 18.0 (5-19) BUN 23 (8-23) mg/dL Creatinine 1.0 (0.7-1.2) mg/dL Glucose 117 H (65-115) mg/dL Calculated Osmolal ity 282 L (285-295) mOsm/k g Calcium 9.0 (8.5-10.5) mg/dL Total Bilirubin 0.8 (0.15-1.2) mg/dL AST 24 (0-40) U/L ALT 18 (0-41) U/L Alkaline Phosphata se 15 L (40-130) IU/L Troponin T Baselin e (0-15) ng/mL Troponin T 120 Min circle (0-15) ng/mL Delta Troponin T (0-10) ABS# Total Protein 5.5 L (6.6-8.7) g/dL Albumin 3.5 (3.5-5.2) g/dL Globulin 2.0 (1.3-4.6) g/dL 10/24/19 10/24/19 Range/Units 13:05 15:00 WBC (4.0-10.0) 10^3/ uL RBC (4.1-5.3) 10^6/u L Hgb (11.7-16.6) g/dL Hct (42.0-52.0) % MCV (80-94) fL MCH (28.0-34.0) pg MCHC (30.0-36.0) g/dL RDW (12.1-15.1) % Plt Count (130-400) 10^3/c mm MPV (7.4-10.4) fL Neut % (Auto) % Lymph % (Auto) % [place] % (Auto) % Eos % (Auto) % Baso % (Auto) % Neut # (Auto) (1.8-7.7) 10^3/u L Lymph # (Auto) (0.8-4.8) 10^3/u L [place] # (Auto) (0.2-0.9) 10^3/u L Eos # (Auto) (0.0-0.8) 10^3/u L Baso # (Auto) (0.0-0.1) 10^3/u L Nucleated RBC % (a uto) % Nucleated RBCs # /100WBC D-Dimer (0-0.59) ug/mIFE U Sodium (136-145) mmol/L Potassium (3.5-5.1) mmol/L Chloride (98-107) mmol/L Carbon Dioxide (22-29) mmol/L Anion Gap (5-19) BUN (8-23) mg/dL Creatinine (0.7-1.2) mg/dL Glucose (65-115) mg/dL Calculated Osmolal ity (285-295) mOsm/k g Calcium (8.5-10.5) mg/dL Total Bilirubin (0.15-1.2) mg/dL AST (0-40) U/L ALT (0-41) U/L Alkaline Phosphata se (40-130) IU/L Troponin T Baselin e 54 H (0-15) ng/mL Troponin T 120 Min circle 54.72 H (0-15) ng/mL Delta Troponin T 0.72 (0-10) ABS# Total Protein (6.6-8.7) g/dL Albumin (3.5-5.2) g/dL Globulin (1.3-4.6) g/dL Imaging Data^: CTA Chest: Radiologist's impression: [address] [address] [address] Scan Report Signed Patient: Dieter Figueroa #: [id number] : 5Acct#:[id number] Age/Sex: 74 / MADM Date: 10/24/19 Loc: ERRoom/Bed: Attending Dr: Ordering Provider/Ordering MD: Isadora Felix MD, [facility] [place] of Service: 10/24/19 Procedure(s): CT angio chest PE protcl [id number] Accession Number(s): [id number] Report Number: [id number] WS: [id number] CT CHEST ANGIOGRAPHY WITH REFORMATS HISTORY: sob, high pre-test probability TECHNIQUE: Contiguous axial images are obtained through the chest during arterial injection of intravenous contrast. Images are reconstructed to evaluate the pulmonary arteries. MIP imaging also reviewed. All CT scans at [facility] use at least one of these dose optimization techniques: automated exposure control; mA and/or kV adjustment per patient size (includes targeted exams where dose is matched to clinical indication); or iterative reconstruction. CONTRAST: Omnipaque 350; 95 mL IV. DLP: 678.08 mGy.cm COMPARISON: 10/24/2019 Very good opacification and enhancement of the pulmonary arteries. No central pulmonary embolism. The main pulmonary artery is enlarged measuring 4.0 cm. Segmental and subsegmental filling defect defects are present in the lower lobe pulmonary arteries bilaterally. Small layering bilateral pleural effusions. Very tiny residual LEFT pneumothorax is identified on image 66 of series 4. No pulmonary contusion or laceration. Pulmonary injury could be obscured by the pleural fluid. Heart size is moderately enlarged. Moderate LEFT heart enlargement. Tricuspid regurgitation into the hepatic veins. Mild atherosclerosis of aorta. There is diffuse soft tissue anasarca. Significant soft tissue anasarca with left-sided subcutaneous emphysema. Soft tissue edema extends into the peritoneal cavity. Cholelithiasis. There is a partially visualized endovascular stent grafting of aorta. Remote L1 compression fracture. Acute lateral sixth rib fracture. There are additional fractures which are very poorly visualized involving the seventh and eighth ribs also. Notified Isadora Felix MD [facility] [place] at 10/24/2019 3:[address]/CT angio chest PE protcl [id number] IMPRESSION: 1. Subsegmental and segmental bilateral lower lobe pulmonary emboli. 2. Small bilateral pleural effusions with diffuse soft tissue edema and anasarca over the thorax and upper abdomen. 3. Very tiny residual LEFT pneumothorax. 4. Acute rib fractures involving the LEFT sixth, seventh and eighth ribs. 5. No pulmonary contusion. 6. Moderate enlargement of the LEFT heart. 7. Tricuspid regurgitation into hepatic veins. Dictated By:Jo Cuevas DO Signed By:Jo Cuevas DOSigned Date/Time:10/24/19 1514 DD/ 1500 EKG Data^: EKG 1: Attestation: I personally reviewed and interpreted this EKG as follows: EKG Interpretation Date: 10/24/19 EKG interpretation time: 16:40 Other EKG Comments: [place] [address] Electrocardiograph Report Signed Patient: Dieter Figueroa #: [id number] : 5Acct#:[id number] Age/Sex: 74 / MADM Date: 10/24/19 Loc: ERRoom/Bed: Attending Dr: Quin Valentin MD Ordering Provider/Ordering MD: Isadora Felix MD, [facility] [place] Date of Service: 10/24/19 Procedure(s): ECG 12 lead EKG Accession Number(s): [id number] Report Number: [id number] Measurements Intervals [place] Rate: 85 P: 55 NC: 152 QRS: 30 QRSD: 144 T: 173 QT: 387 QTc: 462 SINUS RHYTHM POSSIBLE LEFT ATRIAL ENLARGEMENT [-0.1mV P WAVE IN V1/V2] INTRAVENTRICULAR CONDUCTION DELAY [130+ ms QRS DURATION] LATERAL MYOCARDIAL INFARCTION , OF INDETERMINATE AGE [40+ ms Q WAVE AND/OR ST/T ABNORMALITY IN I/aVL/V5/V6] INFERIOR MYOCARDIAL INFARCTION , PROBABLY OLD [40+ ms Q WAVE AND/OR ST/T AB ABNORMALITY IN II/aVF] Compared to ECG 09/09/2017 10:06:29 Intraventricular conduction delay now present Left anterior fascicular block no longer present Myocardial infarct finding still present Electronically Signed On 10-24-2019 17:21:49 CDT by Paradise Rucker M.D. [id number] Dictated By:Paradise Rucker MD Signed By:Paradise Rucker MDSigned Date/Time:10/24/19 1723 DD/ 1640 EKG 2: Attestation: I personally reviewed and interpreted this EKG as follows: EKG Interpretation Date: 10/24/19 EKG interpretation time: 18:40 Prior EKG tracings: available for review Interpretation: Unchanged from earlier today. Discharge Plan Discharge Patient Disposition: Admitted As Inpatient Admit Provider: Quin Valentin Clinical Impression: Pulmonary embolism, Pneumothorax, Closed rib fracture, Anasarca Condition: Stable Interventions: ED Discharge Assessment Last Done: 10/24/19 18:33 ED Charges Last Done: 10/24/19 18:33 Discharge Date/Time: 10/24/19 18:54 Coding Level of Care Code ED Vacuum Tester Cans for Chg Fwd Exam Comprehensive
[2019-10-24] MEDS: iohexol 350 mg/mL 100 mL Btl IV (14:48)
--- NOTE | 2019-10-24 14:54 | ECG_ITS ---
Measurements Intervals [place] Rate: 85 P: 55 [place]: 152 QRS: 30 QRSD: 144 T: 173 QT: 387 QTc: 462 SINUS RHYTHM POSSIBLE LEFT ATRIAL ENLARGEMENT [-0.1mV P WAVE IN V1/V2] INTRAVENTRICULAR CONDUCTION DELAY [130+ ms QRS DURATION] LATERAL MYOCARDIAL INFARCTION , OF INDETERMINATE AGE [40+ ms Q WAVE AND/OR ST/T ABNORMALITY IN I/aVL/V5/V6] INFERIOR MYOCARDIAL INFARCTION , PROBABLY OLD [40+ ms Q WAVE AND/OR ST/T AB ABNORMALITY IN II/aVF] Compared to ECG 09/09/2017 10:06:29 Intraventricular conduction delay now present Left anterior fascicular block no longer present Myocardial infarct finding still present Electronically Signed On 10-24-2019 17:21:49 CDT by Paradise Rucker M.D. [id number]
[2019-10-24 15:22] LABS: Troponin 5 2HR 54.72 ng/mL (0-15); Troponin 5 2HR Delta 0.72 ABS# (0-10)
[2019-10-24] MEDS: enoxaparin 80 mg/0.8 mL Syringe SUBCUT (15:39)
[2019-10-24] MEDS: FUROsemide 10 mg/mL SDV 4mL 40 MG IVP (16:50)
--- NOTE | 2019-10-24 17:58 | PM.HP ---
Providers/Chief Complaint Admitting Physician: Quin Valentin Primary Care Provider: Keith Rutledge DO Chief Complaint: SOB History of Present Illness Dieter Figueroa is a 74 year old male recently admitted between 10/18-10/20 after presenting with complaints of left-sided chest discomfort and shortness of breath. He was found to have a 6th left rib fracture and approximately 30% left pneumothorax after having fallen on a trailer hitch. He was initially treated with placement of a 13 Romansh left anterior chest wall thoracic vent with subsequent resolution of his pneumothorax with active Pleur-evac suction. This was eventually placed to waterseal and then removed. He has a very small tiny apical pneumothorax which is unchanged. He was discharged on home . He has a h/o COPD and states even prior to admission he needed up to 3lpm. He returned to ER today with c/o left sided chest pain and shortness of breath. D albert was noted to be elevated which prompted CTA chest which showed B/L subsegmental PE and new B/L pleural effusions. Tropinin was initially elevated at 54, 2 hr delta insignificant. He is currently saturating 99% on 5lpm nasal canula. He uses CPAP at home Review of Systems General: Reports: 10 or more systems reviewed and unremarkable except in HPI and below Const: Denies: fever, chills or body aches Eyes: Denies: change in vision, blurry vision or photophobia ENMT: Reports: hoarseness; Denies: throat pain, enlarged tonsils, painful swallowing or nasal congestion Card: Reports: chest pain; Denies: palpitations, irregular heart rhythm, edema, swelling of feet/ankles, lightheadedness, pre-syncope, shortness of breath on exertion or shortness of breath when lying down Resp: Reports: shortness of breath; Denies: productive cough, non-productive cough, wheezing, stridor, pain on inspiration, change in phlegm color, coughing up blood or chest congestion GI: Denies: abdominal pain, nausea, vomiting, vomiting blood, coffee grounds in vomit, difficulty swallowing, heartburn/indigestion, diarrhea, constipation, cramping, change in stool character, blood in stool or black tarry stool : Denies: flank pain, painful urination, urinary frequency, urinary urgency, urinary hesitancy or blood in urine Musc: Denies: neck pain, back pain, extremity pain, joint swelling, joint warmth or deformity Neuro: Denies: headache, numbness in extremities, weakness in extremities, changes in sensation, difficulty walking, frequent falls, dizziness, vertigo, behavioral changes, slurred speech or seizure-like activity Psych: Denies: anxiety, depression, suicidal ideation or homicidal ideation Endo: Denies: excessive urination, excessive thirst, tired all the time, cold intolerance or hot flashes Chris/Lymph: Denies: easy bruising or easy bleeding Medications/Allergies Home Medications Medication Instructions Recorded Confirmed Last Taken Type albuterol sulfate 90 mcg/actuation 2 puff INHALATION Q6H PRN 07/18/19 10/24/19 10/17/19 History aerosol inhaler aspirin 325 mg tablet 325 mg PO DAILY PRN 07/18/19 10/24/19 10/24/19 History budesonide-formoterol HFA 160 2 puff INHALATION BID 07/18/19 10/24/19 Unknown History mcg-4.5 mcg/actuation aerosol inhaler [id number] 1 tab PO DAILY 07/18/19 10/24/19 10/24/19 History carvedilol 25 mg tablet 25 mg PO .COMPLEX 07/18/19 10/24/19 10/24/19 History clopidogrel 75 mg tablet 75 mg PO DAILY 07/18/19 10/24/19 10/24/19 History famotidine 20 mg tablet 20 mg PO BID 07/18/19 10/24/19 10/24/19 History fenofibrate nanocrystallized 145 145 mg PO .noon tab 07/18/19 10/24/19 10/24/19 History mg tablet isosorbide mononitrate 30 mg 30 mg PO QAM 07/18/19 10/24/19 10/17/19 History tablet,extended release 24 hr metformin 500 mg tablet 500 mg PO BID 07/18/19 10/24/19 10/17/19 History multivitamin 1 tab PO QAM 07/18/19 10/24/19 10/24/19 History nitroglycerin 0.4 mg sublingual 0.4 mg SUBLINGUAL Q5M PRN 07/18/19 10/24/19 Unknown History tablet oxycodone 10 mg tablet 10 mg PO .COMPLEX PRN 01/10/24/19 10/24/19 History sennosides 15 mg tablet 15 mg PO QDAY PRN 07/18/19 10/24/19 10/17/19 History sildenafil 100 mg tablet 100 mg PO QDAY PRN 07/18/19 10/24/19 Unknown History fluoxetine 20 mg capsule 20 mg PO BID #60 cap 08/25/19 10/24/19 10/24/19 Rx ibuprofen 800 mg tablet 800 mg PO Q6H PRN #120 tab 08/25/19 10/24/19 10/24/19 Rx omeprazole 20 mg capsule,delayed 20 mg PO DAILY #30 cap 08/25/19 10/24/19 10/17/19 Rx release Allergies Allergy/AdvReac Type Severity Reaction Status Date / Time No Known Allergies Allergy Verified 10/19/19 15:36 PFSH Acute PFSH: Medical History AAA (abdominal aortic aneurysm) Diabetes Hyperlipidemia Surgical History History of abdominal aortic aneurysm (AAA) repair Stented coronary artery left Social History Smoking and tobacco status: current every day smoker cigarettes Alcohol intake: never Vitals/I&O/Wt Last Vital Signs Temp 98.2 F 10/24/19 12:28 Pulse 77 10/24/19 17:29 Resp 18 10/24/19 17:29 BP 187/109 10/24/19 17:29 Pulse Ox 100 10/24/19 17:29 Weight last 48 hrs Weight 77.111 kg Physical Exam Narrative: EXAM NARRATIVE: GEN: Awake, alert and oriented, no acute distress CVS: S1S2 N RS: CTA B/L Abd: Soft, nt/nd , bs+ BAND SHOVER: no focal neuro deficits EXT: No LE pitting edema Data : 10/24/19 13:05 10/24/19 13:05 A&P Assessment and plan (1) COPD (chronic obstructive pulmonary disease): Status: Acute (2) Pulmonary embolism: Status: Acute (3) Subcutaneous emphysema: Status: Acute (4) Pleural effusion: Status: Acute Additional A&P Information Admit to med/surg 1. Pulmonary embolism Subsegmental and segmental PE bilaterally Start anticoagulation with Lovenox 1mg/kg s/c q12h LE doppler to assess for DVT CV echocardiogram to assess for R heart strain, estimate EF given new pleural effusions Incentive spirometry continuous pulse oximetry 2. Recent pneumothorax, small apical pneumothorax, stable, continue supplemental 02 3. New B/L pleural effusions, may be related to underlying CHF vs R heart strain CV echo as above, Hold off on thoracentesis for now lasix 40mg iv q12h for now, monitor urine output and renal function, will titrate based on these 4. COPD, not currently exacerbated Duoneb and budesonide inhalation scheduled CPAP at night as per patient's home requirements Code status: full code DVT ppx: on full dose lovenox Attestations Medical Necessity Statement*: anticipate >2midnight for management of segmental and subsegmental PE Coding Level of Care Code Acute Center Administrator for Chg Fwd Diagnoses COPD (chronic obstructive pulmonary disease) J44.9 Pulmonary embolism I26.99 Subcutaneous emphysema T79.7XXA Pleural effusion J90
[2019-10-24 18:01] LABS: ABG PCO2 49.8 mmHg (35-45); ABG PH Result 7.42 (7.35-7.45); Alveolar-Arterial Oxygen Gradi 110.7 mmHg (5-10); Arterial Blood Gas Hematocrit 46.7 % (42-52); Base Excess ABG 6.6 mmol/L (-2.0-2.0); Blood Gas Allen Test Pos; Blood Gas Sample Site Radial, right; Blood Gas Sample Type Arterial; Carboxyhemoglobin 1.8 %THgb (0.4-20.1); HCO3 ABG 32.5 mmol/L (22-26); HGB O2 Sat 96.1 % (95-100); Ionized Calcium Level - ABG 1.2 mmol/L (1.1-1.4); Methemoglobin 0.8 % (0.4-1.5); Oxygen Device NC; Oxygen Saturation ABG 98.7; Potassium Level - ABG 3.4 mmol/L (3.5-5.0); Total Hemoglobin 15.2 g/dL (14-18)
[2019-10-24] MEDS: oxyCODONE-APAP 5-325 mg Tablet 2 TAB PO (18:01)
--- NOTE | 2019-10-24 18:53 | PC.NURSE ---
Report received from Alma CORREA in the ER. Patient arrived to the ER today with complaint of shortness of breath for a couple days. [Patient is an everyday smoker. Patient has a 20 gauge IV in his LAC. Uses a urinal. Patient has bilateral lower P.E. Patient was given Lovenox at 1539 and Lasix at 1650. Patient has a hx of a repaired triple A.
--- NOTE | 2019-10-24 18:54 | ECG_ITS ---
Measurements Intervals [place] Rate: 67 P: 32 [place]: 155 QRS: 16 QRSD: 143 T: 0 QT: 411 QTc: 436 SINUS RHYTHM POSSIBLE LEFT ATRIAL ENLARGEMENT [-0.1mV P WAVE IN V1/V2] INTRAVENTRICULAR CONDUCTION DELAY [130+ ms QRS DURATION] LATERAL MYOCARDIAL INFARCTION , OF INDETERMINATE AGE [40+ ms Q WAVE AND/OR ST/T ABNORMALITY IN I/aVL/V5/V6] INFERIOR MYOCARDIAL INFARCTION , PROBABLY OLD WITH POSTERIOR EXTENSION [40+ ms WAVE AND/OR ST/T ABNORMALITY IN II/aVFPROMINE Compared to ECG 10/24/2019 16:40:30 No significant changes Electronically Signed On 10-25-2019 17:14:19 CDT by Eyad Garcia M.D. [email or web address]
[2019-10-24 20:28] LABS: Troponin 5 6HR 58.68 ng/mL (0-15); Troponin 5 6HR Delta 4.68 ng/L (0-12)
[2019-10-24] MEDS: famotidine 20 mg Tablet PO (20:57)
[2019-10-24] MEDS: HYDROcodone-acetaminophen 5-325 mg Tablet 1 TAB PO (20:57)
[2019-10-24] MEDS: fluoxetine 20 mg Capsule PO (20:57)
[2019-10-24] MEDS: carvedilol 25 mg Tablet PO (21:02)
[2019-10-24 21:08] LABS: Glucose Point of Care 117 mg/dL (70-110)
[2019-10-25] VITALS (11 sets, daily range): BP systolic 157–180; BP diastolic 77–88; PULSE 59–71; RESP 16–18; TEMP 36.3–36.8; O2SAT 95–100
[2019-10-25] MEDS: ipratropium-albuterol 3 mL Neb INHALATION ×4 (02:10→20:08)
[2019-10-25] MEDS: FUROsemide 10 mg/mL SDV 4mL 40 MG IVP ×2 (03:02→15:45)
[2019-10-25] MEDS: enoxaparin 80 mg/0.8 mL Syringe 70 MG SUBCUT ×2 (03:03→15:45)
[2019-10-25] MEDS: HYDROcodone-acetaminophen 5-325 mg Tablet 1 TAB PO ×2 (03:03→23:02)
[2019-10-25 05:50] LABS: Basophils # 0.1 10^3/uL (0.0-0.1); Basophils % 0.6 %; Eosinophils # 0.5 10^3/uL (0.0-0.8); Eosinophils % 5.7 %; Hematocrit 45.8 % (42.0-52.0); Hemoglobin 14.7 g/dL (11.7-16.6); Lymphocytes # 1.6 10^3/uL (0.8-4.8); Lymphocytes % 19.4 %; Mean Corpuscular HGB Conc 32.1 g/dL (30.0-36.0); Mean Corpuscular Hemoglobin 30.2 pg (28.0-34.0); Mean Platelet Volume 10.8 fL (7.4-10.4); Monocytes # 0.8 10^3/uL (0.2-0.9); Monocytes % 9.5 %; Neutrophils # 5.4 10^3/uL (1.8-7.7); Neutrophils % 64.6 %; Nucleated Red Blood Cells % 0 %; Platelet Count 271 10^3/cmm (130-400); Red Blood Count 4.87 10^6/uL (4.1-5.3); Red Cell Distribution Width 15.4 % (12.1-15.1); White Blood Count 8.3 10^3/uL (4.0-10.0)
[2019-10-25] MEDS: isosorbide mononitrate ER 30 mg Tablet PO (05:56)
[2019-10-25 06:18] LABS: Anion Gap 14.3 (5-19); Blood Urea Nitrogen 19 mg/dL (8-23); Calcium 9.1 mg/dL (8.5-10.5); Carbon Dioxide 36 mmol/L (22-29); Chloride 91 mmol/L (98-107); Glucose 95 mg/dL (65-115); Osmolality Calculated 282 mOsm/kg (285-295); Potassium 3.3 mmol/L (3.5-5.1); Sodium 138 mmol/L (136-145)
[2019-10-25 07:23] LABS: Glucose Point of Care 88 mg/dL (70-110)
[2019-10-25] MEDS: pantoprazole DR 40 mg Tablet PO (08:43)
[2019-10-25] MEDS: clopidogrel 75 mg Tablet PO (08:44)
[2019-10-25] MEDS: fluoxetine 20 mg Capsule PO ×2 (08:45→16:51)
[2019-10-25] MEDS: famotidine 20 mg Tablet PO ×2 (08:46→16:51)
--- NOTE | 2019-10-25 09:54 | PC.CHAP ---
Pastoral Care Encounter/Spiritual Assessment Type of Contact [] Declined intake worker visit [] Patient/Family/Request visit [] Outpatient visit [] Follow-up visit [] Physician referral [] Code/Alert [x] Routine visit [] Staff referral [] Actively dying [] Patient sleeping [] Family support [] [] Out of room [] Palliative care [] [] Receiving care in room [] Pre-surgical visit [] Trauma [] Long length of stay [] ICU visit [] Other: Relational/Emotional Strength [] Patient feels connected with others/family/visitors/staff [] Distress [] Loneliness/isolation [] Abandonment Spirituality of Patient [] Person of Ida [] Attends Yazidism of their Ida [] Believes in Prayer [] Reads Bible or Caodaism materials [] There are Spiritual issues to be addressed Color Depositing Machine Tender Interventions [x Prayer [] Active listening [] Non-anxious presence [] Spiritual/emotional support [] Crisis/trauma care [] Spiritual counseling [] Bereavement support [] Provided bereavement packet [] Provided Bible/devotional materials [] Provided toy/stuffed animal, coloring book to patient or family member [] Provided Communion [] Anointing/[place] [] Salvation [x Completed spiritual assessment [] Other: Impact on Illness or Injury [] Angry [] Fearful [] Anxious [] Often cries [] Exhaustion [] Unable to work [] Unable to attend alevism [] Unable to walk/stand [] Unable to read [] Unable to drive [] Unable to eat/drink [] Unable to sleep [] Unable to be with family [] Patient intubated [] Other: Summary Patient feeling weak. Patient requested additional blankets. Time spent with patient 10min
[2019-10-25 12:01] LABS: Glucose Point of Care 108 mg/dL (70-110)
[2019-10-25] MEDS: carvedilol 25 mg Tablet PO ×2 (12:56→22:10)
[2019-10-25] MEDS: ibuprofen 200 mg Tablet 400 MG PO ×2 (12:57→22:09)
--- NOTE | 2019-10-25 15:01 | PM.PN ---
Subjective Subjective: Interval history: Patient continues to be hemodynamically stable. Heart rate between 58-60. He is afebrile. Currently saturating 97% on 3 L/min nasal cannula. No acute events overnight. Echocardiogram was taken. It shows LVEF of 35% with inferior wall hypokinesia. Also noted diastolic dysfunction. States pain is well controlled today. Breathing is improving. He has diuresed about 2.4 L with IV Lasix. Lower extremity Doppler taken, remains pending at this time. Medications: Reviewed: Yes Vitals/I&O/Wt Last Vital Signs Temp 98.2 F 10/25/19 11:08 Pulse 60 10/25/19 11:08 Resp 18 10/25/19 11:08 BP 167/82 10/25/19 11:08 Pulse Ox 97 10/25/19 11:08 10/25/19 10/25/19 10/25/19 06:59 14:59 22:59 Intake Total 100 / 560 360 / 360 Output Total 600 / 1250 1200 / 1200 Balance -500 / -690 -840 / -840 Weight last 48 hrs Weight 77.111 kg Physical Exam Narrative: EXAM NARRATIVE: GEN: Awake, alert and oriented, no acute distress CVS: S1S2 N RS: CTA B/L Abd: Soft, nt/nd , bs+ DIRECTOR WORKERS COMPENSATION: no focal neuro deficits Data : 10/26/19 05:23 10/26/19 05:23 A&P Assessment and plan (1) COPD (chronic obstructive pulmonary disease): Status: Acute (2) Pulmonary embolism: Status: Acute (3) Subcutaneous emphysema: Status: Acute (4) Pleural effusion: Status: Acute Additional A&P Information 1. Pulmonary embolism Subsegmental and segmental PE bilaterally Start anticoagulation with Lovenox 1mg/kg s/c q12h, plan to transition to oral Eliquis upon discharge LE doppler to assess for DVT remains pending CV echocardiogram with LVEF 35% with inferior wall hypokinesia, diastolic dysfunction Incentive spirometry continuous pulse oximetry 2. Recent pneumothorax, small apical pneumothorax, stable, continue supplemental 02 3. New B/L pleural effusions, may be related to underlying CHF, no right heart strain from identified on echocardiogram CV echo as above, Hold off on thoracentesis for now Continue Lasix 40mg iv q12h for now, monitor urine output and renal function, repeat chest x-ray tomorrow morning add lidocaine patch Past history of CAD. Aspirin 325 currently on hold while on Lovenox. Plan to discharge on eliquis+ Plavix with follow-up of hemoglobin as an outpatient. 4. COPD, not currently exacerbated Duoneb and budesonide inhalation scheduled CPAP at night as per patient's home requirements Code status: full code DVT ppx: on full dose lovenox Attestations Medical Necessity Statement*: awaiting optimization of respiratory status prior to discharge Coding Level of Care Code Acute Forming Machine Operator for Caty Mccollum Diagnoses COPD (chronic obstructive pulmonary disease) J44.9 Pulmonary embolism I26.99 Subcutaneous emphysema T79.7XXA Pleural effusion J90
[2019-10-25 17:07] LABS: Glucose Point of Care 107 mg/dL (70-110)
--- NOTE | 2019-10-25 19:19 | USCV_ITS ---
Dieter Figueroa Age: 74 Gender: M : 1945 Exam Date: 10/25/2019 09:27 Ordering Phys: Quin Valentin MD Technologist: Tiny Rollins Exam Location: [facility] [place] Indication: PE HISTORY: Pulmonary embolism. PROCEDURES: Venous duplex imaging was performed in bilateral lower extremities. The following venous structures were evaluated: common femoral vein, profunda vein, proximal portion of the greater saphenous vein, superficial femoral vein, and the popliteal vein. In addition, the posterior tibial and peroneal trunk were evaluated. Serial compression, augmentation maneuvers, and spectral Doppler flow evaluation were performed. FINDINGS: Normal 2-D Doppler and augmentation and compressibility throughout the lower extremity venous structures. Additional imaging through the proximal calf veins also reveals no thrombus. Limited evaluation of the greater saphenous vein is patent with no thrombus.. CONCLUSIONS No evidence of right lower extremity DVT. No evidence of left lower extremity DVT. aMc Tavares MD (Electronically Signed) Final Date: 26 Oct 2019 13:56 S
--- NOTE | 2019-10-25 20:38 | USCV_ITS ---
Dieter Figueroa Age: 74 Gender: M : 1945 Exam Date: 10/25/2019 09:15 Ordering Phys: Quin Valentin MD Technologist: Tiny Rollins Exam Location: [facility] Indication: EMBOLISM BP: / HR: 54 Rhythm: Sinus Technical Quality: Adequate MEASUREMENTS (Male / Female) Normal Values 2D ECHO LV Diastolic Diameter PLAX 5.7 cm 4.2 - 5.9 / 3.9 - 5.3 cm LV Systolic Diameter PLAX 4.4 cm LV Chamber Size 3.6 cm IVS Diastolic Thickness 1.4 cm 0.6 - 1.0 / 0.6 - 0.9 cm IVS Systolic Thickness 1.6 cm LVPW Diastolic Thickness 2.2 cm 0.6 - 1.0 / 0.6 - 0.9 cm LVPW Systolic Thickness 2.4 cm RV Chamber Size 3.8 cm LVOT Diameter 2.0 cm LV Ejection Fraction 2D Teich 44.4 % LV Ejection Fraction MOD 2C 18.0 % LV Ejection Fraction 2C AL 17.1 % LA Diameter 3.2 cm LA Width 4.0 cm LA Height 4.2 cm RA Width 3.2 cm RA Height 3.6 cm M-MODE LV Diastolic Diameter MM 6.2 cm 4.2 - 5.9 / 3.9 - 5.3 cm LV Systolic Diameter MM 4.8 cm LV Ejection Fraction MM Teich 44.5 % IVS Diastolic Thickness MM 1.3 cm 0.6 - 1.0 / 0.6 - 0.9 cm IVS Systolic Thickness MM 1.2 cm LVPW Diastolic Thickness MM 1.5 cm 0.6 - 1.0 / 0.6 - 0.9 cm LVPW Systolic Thickness MM 1.4 cm Aortic Annulus Diameter 3.7 cm LA Ao Ratio MM 0.9 MV E Point Septal Separation 1.7 cm DOPPLER AV Peak Velocity 111.0 cm/s LVOT Peak Velocity 89.0 cm/s AV Area Cont Eq vti 2.5 cm squared AV Area Cont Eq pk 2.6 cm squared MV Area PHT 4.1 cm squared Mitral E to A Ratio 0.7 MV E' Velocity 8.0 cm/s Mitral E to MV E' Ratio 9.0 Mitral E to LV E' Lateral Ratio 7.7 Mitral E to LV E' Septal Ratio 11.0 TR Peak Velocity 93.0 cm/s TR Peak Gradient 3.4 mmHg TV Peak E Velocity 63.0 cm/s Right Atrial Pressure 3.0 mmHg Pulmonary Artery Systolic Pressu 6.5 mmHg PV Peak Velocity 73.0 cm/s RV Acceleration Time 0.2 s RV Ejection Time 0.3 s RV AcT/ET 0.5 FINDINGS Left Ventricle Normal left ventricular cavity size. Mild concentric left ventricular hypertrophy. Moderately decreased left ventricular systolic function. Left ventricular ejection fraction is estimated at 35 %. Moderate diffuse global hypokinesis. Abnormal septal motion consistent with conduction abnormality. Grade I diastolic dysfunction (abnormal relaxation filling pattern), normal to mildly elevated filling pressures. Right Ventricle Normal right ventricular size and systolic function. Right ventricular systolic pressure 6.5 mmHg. Right Atrium Normal right atrial size. Right atrial pressure estimated at 3 mmHg. Left Atrium Mildly increased left atrial size. Mitral Valve Mildly thickened mitral valve. No mitral valve stenosis. Trace mitral valve regurgitation. Aortic Valve Aortic valve not well visualized. No aortic valve stenosis. No aortic valve regurgitation. Tricuspid Valve Structurally normal tricuspid valve. Trace tricuspid valve regurgitation. Pulmonic Valve Pulmonic valve not well visualized. Pericardium No pericardial or pleural effusion. Aorta Normal sized aortic root and ascending aorta. CONCLUSIONS 1. Normal left ventricular cavity size. Mild concentric left ventricular hypertrophy. Moderately decreased left ventricular systolic function. Left ventricular ejection fraction is estimated at 35 %. Moderate diffuse global hypokinesis. Grade I diastolic dysfunction (abnormal relaxation filling pattern), normal to mildly elevated filling pressures. 2. Normal right ventricular size and systolic function. 3. No significant valvular abnormality. 4. Normal pulmonary artery pressure. 5. No prior similar studies to compare. Janiya Guidry MD (Electronically Signed) Final Date: 25 Oct 2019 13:09 S
[2019-10-25 22:16] LABS: Glucose Point of Care 126 mg/dL (70-110)
[2019-10-26] VITALS (10 sets, daily range): BP systolic 156–171; BP diastolic 67–91; PULSE 61–72; RESP 16–19; TEMP 36.4–36.9; O2SAT 90–98
[2019-10-26] MEDS: ipratropium-albuterol 3 mL Neb INHALATION ×3 (03:59→15:26)
[2019-10-26] MEDS: enoxaparin 80 mg/0.8 mL Syringe 70 MG SUBCUT (05:03)
[2019-10-26] MEDS: FUROsemide 10 mg/mL SDV 4mL 40 MG IVP (05:03)
[2019-10-26] MEDS: isosorbide mononitrate ER 30 mg Tablet PO (05:04)
[2019-10-26] MEDS: HYDROcodone-acetaminophen 5-325 mg Tablet 1 TAB PO ×2 (05:04→11:07)
--- NOTE | 2019-10-26 06:00 | XR_ITS ---
WS: [id number] XR chest 1V portable [id number] REASON FOR EXAM: follow up pleural effusion, pneumothorax FINDINGS: The subcutaneous emphysema on the left appears to be almost completely resolved. The lung stephens are adequately aerated. The lower lung show mild low-grade alveolar infiltrates. The heart was not enlarged. XR/XR chest 1V portable [id number] IMPRESSION: Residual edema in the lower lungs Resolved subcutaneous emphysema.
[2019-10-26 06:05] LABS: Basophils % 0.3 %; Eosinophils # 0.3 10^3/uL (0.0-0.8); Eosinophils % 3.9 %; Hematocrit 43.6 % (42.0-52.0); Hemoglobin 14.4 g/dL (11.7-16.6); Lymphocytes # 1.7 10^3/uL (0.8-4.8); Lymphocytes % 22.1 %; Mean Corpuscular Hemoglobin 31.2 pg (28.0-34.0); Mean Corpuscular Volume 94.6 fL (80-94); Mean Platelet Volume 10.4 fL (7.4-10.4); Monocytes # 0.9 10^3/uL (0.2-0.9); Monocytes % 11.2 %; Neutrophils # 4.9 10^3/uL (1.8-7.7); Neutrophils % 62.2 %; Nucleated Red Blood Cells % 0 %; Platelet Count 265 10^3/cmm (130-400); Red Blood Count 4.61 10^6/uL (4.1-5.3); Red Cell Distribution Width 15.2 % (12.1-15.1); White Blood Count 7.9 10^3/uL (4.0-10.0)
[2019-10-26 06:26] LABS: Alanine Aminotransferase 17 U/L (0-41); Albumin Level 3.5 g/dL (3.5-5.2); Alkaline Phosphatase 16 IU/L (40-130); Anion Gap 10.9 (5-19); Aspartate Amino Transferase 21 U/L (0-40); Blood Urea Nitrogen 18 mg/dL (8-23); Calcium 8.8 mg/dL (8.5-10.5); Carbon Dioxide 40 mmol/L (22-29); Chloride 90 mmol/L (98-107); Globulin 2.1 g/dL (1.3-4.6); Glucose 131 mg/dL (65-115); Osmolality Calculated 284 mOsm/kg (285-295); Sodium 138 mmol/L (136-145); Total Bilirubin 0.9 mg/dL (0.15-1.2); Total Protein 5.6 g/dL (6.6-8.7)
[2019-10-26 06:27] LABS: Glucose Point of Care 147 mg/dL (70-110)
[2019-10-26 06:59] LABS: Potassium 2.9 mmol/L (3.5-5.1)
[2019-10-26] MEDS: fluoxetine 20 mg Capsule PO (07:44)
[2019-10-26] MEDS: lidocaine 5% Patch 1 PATCH TOPICAL (07:44)
[2019-10-26] MEDS: famotidine 20 mg Tablet PO (07:44)
[2019-10-26] MEDS: clopidogrel 75 mg Tablet PO (07:44)
[2019-10-26] MEDS: pantoprazole DR 40 mg Tablet PO (07:44)
[2019-10-26] MEDS: carvedilol 25 mg Tablet PO (11:04)
[2019-10-26] MEDS: ibuprofen 200 mg Tablet 400 MG PO (11:09)
[2019-10-26 11:40] LABS: Glucose Point of Care 123 mg/dL (70-110)
--- NOTE | 2019-10-26 12:54 | P.DS_ITS ---
Discharge Providers Date of Admission: 10/24/19 16:47 Date of Discharge: October 26, 2019 Attending Provider at Admission: Quin Valentin MD Attending Provider at Discharge: Quin Valentin MD Primary Care Provider: Keith Rutledge DO Diagnoses at Discharge Discharge Diagnosis (1) COPD (chronic obstructive pulmonary disease): Status: Acute (2) Pulmonary embolism: Status: Acute (3) Subcutaneous emphysema: Status: Acute (4) Pleural effusion: Status: Acute Reason for Visit Reason for Visit: Reason For Visit: SOB Hospital Course Discharge Summary: Dieter Figueroa is a 74 year old male recently admitted between 10/18-10/20 after presenting with complaints of left-sided chest discomfort and shortness of breath. He was found to have a 6th left rib fracture and approximately 30% left pneumothorax after having fallen on a trailer hitch. He was initially treated with placement of a 13 [place] left anterior chest wall thoracic vent with subsequent resolution of his pneumothorax with active Pleur- evac suction. This was eventually placed to waterseal and then removed. He has a very small tiny apical pneumothorax which is unchanged. He was discharged on home . He has a h/o COPD and states even prior to admission he needed up to 3lpm. He returned to ER on 10/23 with c/o left sided chest pain and shortness of breath. D dimer was noted to be elevated which prompted CTA chest which showed B/L subsegmental PE and new B/L pleural effusions. Tropinin was initially elevated at 54, without significant delta's. He was subjectively short of breath upon arrival however this improved during course of treatment during the hospital. He was started on anticoagulation with full dose Lovenox, which is being transitioned to oral Eliquis at the time of discharge. His pain was better controlled after applying lidocaine patch. In terms of his medication changes, he was initially on aspirin 325 and Plavix 75 every day. With initiation of Eliquis, aspirin 325 has been discontinued and patient is being discharged on Plavix plus Eliquis with advised to follow-up with his PCP in the next week to recheck a CBC and ensure hemoglobin stability. He should also be checked out for any bleeding manifestations and has been warned about this. He has also been instructed to use a walker at all times to remain steady as being on anticoagulation will put him at a higher risk of bleeding should he fall. He was also noted to have bilateral pleural effusions. Echocardiogram was obtained which showed systolic heart failure with a EF of 35% and inferior wall hypokinesia and diastolic dysfunction. He received diuresis with IV Lasix while inpatient and improved significantly. He is being discharged on Lasix 20 mg oral daily, which may be readjusted on outpatient follow-up. 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: no focal neuro deficits EXT; no pedal edema Discharge Data Data Completed and Pending: Completed Studies During Hospitalization Category Date Time Status CT angio chest PE protcl [id number] Stat Cat Scan 10/24/19 13:48 Completed XR chest 1V hamzah ble [id number] Routine Exams 10/26/19 06:00 Completed XR chest 1V hamzah ble [id number] Stat Exams 10/24/19 12:52 Completed XR hip LT 2-3V wo /w pel* [id number] Stat Exams 10/24/19 12:52 Completed CV echo complete* [id number] Routine Ultrasound 10/25/19 20:38 Completed Pending at discharge Category [place] [id number] Routin e Ultrasound 10/25/19 19:19 Taken Labs from last 24 hours 10/26/19 10/26/19 10/26/19 10:40 06:04 05:23 WBC RBC Hgb Hct MCV MCH MCHC RDW Plt Count MPV Neut % (Auto) Lymph % (Auto) [place] % (Auto) Eos % (Auto) Baso % (Auto) Neut # (Auto) Lymph # (Auto) [place] # (Auto) Eos # (Auto) Baso # (Auto) Nucleated RBC % (a uto) Nucleated RBCs # Sodium 138 Potassium 2.9 L Chloride 90 L Carbon Dioxide 40 H Anion Gap 10.9 BUN 18 Creatinine 1.0 Glucose 131 H POC Glucose 123 147 Calculated Osmolal ity 284 L Calcium 8.8 Total Bilirubin 0.9 AST 21 ALT 17 Alkaline Phosphata se 16 L Total Protein 5.6 L Albumin 3.5 Globulin 2.1 10/26/19 10/25/19 10/25/19 05:23 21:52 16:51 WBC 7.9 RBC 4.61 Hgb 14.4 Hct 43.6 MCV 94.6 H MCH 31.2 MCHC 33.0 RDW 15.2 H Plt Count 265 MPV 10.4 Neut % (Auto) 62.2 Lymph % (Auto) 22.1 [place] % (Auto) 11.2 Eos % (Auto) 3.9 Baso % (Auto) 0.3 Neut # (Auto) 4.9 Lymph # (Auto) 1.7 [place] # (Auto) 0.9 Eos # (Auto) 0.3 Baso # (Auto) 0.0 Nucleated RBC % (a uto) 0 Nucleated RBCs # 0.0 Sodium Potassium Chloride Carbon Dioxide Anion Gap BUN Creatinine Glucose POC Glucose 126 107 Calculated Osmolal ity Calcium Total Bilirubin AST ALT Alkaline Phosphata se Total Protein Albumin Globulin Vitals: Last Vital Signs Temp 98.4 F 10/26/19 10:38 Pulse 65 10/26/19 10:38 Resp 18 10/26/19 10:38 BP 158/67 10/26/19 10:38 Pulse Ox 97 10/26/19 10:38 Discharge Plan Discharge Patient Disposition: Home, Self-Care Condition: Stable Prescriptions: New ibuprofen 200 mg Tablet 400 mg PO Q12H PRN (Reason: mild/mod pain or temp >/= 101) Qty: 0 RF: 0 Eliquis 5 mg tablet 5 mg PO BID 90 Days Qty: 180 RF: 0 lidocaine 4 % adhesive patch,medicated 1 patch TOPICAL DAILY PRN (Reason: pain) Qty: 1 RF: 0 Lasix 20 mg tablet 20 mg PO DAILY Qty: 30 RF: 0 potassium chloride 20 mEq packet 20 meq PO DAILY Qty: 30 RF: 0 Continued carvedilol 25 mg tablet 25 mg PO .COMPLEX RF: 0 clopidogrel [Plavix] 75 mg tablet 75 mg PO DAILY RF: 0 isosorbide mononitrate 30 mg tablet extended release 24 hr 30 mg PO QAM RF: 0 metformin 500 mg tablet 500 mg PO BID RF: 0 multivitamin Tablet 1 tab PO QAM RF: 0 Laxative (sennosides) 15 mg tablet 15 mg PO QDAY PRN (Reason: Constipation) RF: 0 ssfivgz-pqoevkjhz-yolf Tablet 1 tab PO DAILY RF: 0 nitroglycerin 0.4 mg tablet, sublingual 0.4 mg SUBLINGUAL Q5M PRN (Reason: Chest Pain) RF: 0 famotidine 20 mg tablet 20 mg PO BID RF: 0 fenofibrate nanocrystallized 145 mg tablet 145 mg PO .noon RF: 0 albuterol sulfate [Ventolin HFA] 90 mcg/actuation HFA aerosol inhaler 2 puff INHALATION Q6H PRN (Reason: Shortness Of Breath) RF: 0 Symbicort 160-4.5 mcg/actuation HFA aerosol inhaler 2 puff INHALATION BID RF: 0 sildenafil [Viagra] 100 mg tablet 100 mg PO QDAY PRN (Reason: ERECTILE DIS) RF: 0 fluoxetine 20 mg capsule 20 mg PO BID Qty: 60 RF: 5 omeprazole 20 mg capsule,delayed release(DR/EC) 20 mg PO DAILY Qty: 30 RF: 6 Changed oxycodone 10 mg tablet 10 mg PO Q6H PRN (Reason: pain) Qty: 0 RF: 0 Discontinued aspirin 325 mg tablet 325 mg PO DAILY PRN (Reason: UNKNOWN) RF: 0 ibuprofen 800 mg tablet 800 mg PO Q6H PRN (Reason: pain) Qty: 120 RF: 4 Discharge Orders: Discharge Order (Routine); Ordered 10/26/19 Ordered By: Quin Valentin Other Ambulatory Orders: Complete Blood Count w/Auto (Routine) Timeframe: 1 Week Location: Determined by Patient Ordered By: Quin Valentin Referrals: Keith Rutledge DO [Primary Care Provider] - 10/30/19 10:40 am (f/up hospital discharge for PE, recent pneumothorax) Discharge Diet: Usual diet Discharge Activity: Resume usual activity Patient Instructions: Furosemide (By mouth), Lidocaine (On the skin), Potassium Supplement (By mouth), Apixaban (By mouth), Dyspnea (GEN), COPD Stoplight Discharge Attestations Time Spent in Discharge Care*: greater than 30 min Specific Discharge Activities: Specific discharge activities: educating patient and discussing with family service caseworker/social workers/dc planners Status at Discharge: Cognitive status at discharge: cognitively intact , Behavioral status at discharge: cooperative , Quality Metrics Clinical Quality Measures During this hospital stay, did patient experience: VTE Contraindication to Overlap Therapy: Overlap treatment not indicated VTE Discharge Education: Education about anticoagulant therapy/Care Notes given and Medication side effects education Coding Level of Care Code Acute E Commerce Marketing Manager for g Fwd Diagnoses COPD (chronic obstructive pulmonary disease) J44.9 Pulmonary embolism I26.99 Subcutaneous emphysema T79.7XXA Pleural effusion J90
[2019-10-26] MEDS: apixaban 5 mg Tablet 10 MG PO (15:22)
--- NOTE | 2019-10-26 16:40 | PC.RESP ---
Smoking Cessation and Pulmonary Rehab information sent to patient with a schedule of classes.
== END 2019-10-26 16:11 | disposition home or self-care (01) | DRG 176 ==
LOC: ER 16:38 → MEDSURG 18:12
PROVIDERS: Admitting Provider Student in an Organized Health Care Education/Training Program; Emergency Provider Family Medicine; Family Provider Family Medicine; PCP Family Medicine; Visit Provider Student in an Organized Health Care Education/Training Program
DX: I26.99 Other pulmonary embolism without acute cor pulmonale (principal); J90 Pleural effusion, not elsewhere classified; J98.2 Interstitial emphysema; Z79.02 Long term (current) use of antithrombotics/antiplatelets; Z79.82 Long term (current) use of aspirin; E78.5 Hyperlipidemia, unspecified; I71.4 Abdominal aortic aneurysm, without rupture; F17.210 Nicotine dependence, cigarettes, uncomplicated
CPT/HCPCS: 12345; 36415; 36416; 36600; 71045; 71275; 73502; 80048; 80051; 80053; 82810; 82962; 83986; 84484; 85025; 85378; 93005; 93306; 93970; 94640; 94664; 94762; 96372; 96375; 97110; 97116; 97161; 99282; J1650; J1815; J1940; Q9967

== ENCOUNTER 2020-01-21 23:47 | Inpatient (IN) | payer MEDICARE, MEDICAID, SELFPAY ==
[2020-01-21 23:49] VITALS: BP 170/136; PULSE 121; RESP 26; TEMP 37.1; O2SAT 94
--- NOTE | 2020-01-21 23:51 | XR_ITS ---
WS: [id number] PORTABLE CHEST HISTORY: Dyspnea COMPARISON: 10/26/2019 Marked pulmonary hyperexpansion. Slight elevation of the RIGHT hemidiaphragm. Pulmonary vasculature i s normal. Mild blunting of the RIGHT costophrenic angle. Cardiac size: Normal. Mediastinum/Aorta: Mild atherosclerosis aorta. No osseous abnormality seen. XR/XR chest 1V portable [id number] IMPRESSION: Chronic emphysema with slightly elevated RIGHT hemidiaphragm. Tiny RIGHT effusion versus pleural thickening.
--- NOTE | 2020-01-21 23:53 | ECG_ITS ---
[facility] Test Date: 2020-01-21 Pat Name: Dieter Figueroa Department: Room: Gender: Male Zoning Assistant: : 1945 Requested By: Aida Staley Order Number: [id number] Fatou MD: Paradise Rucker M.D. Measurements Intervals [place] Rate: 113 P: 56 VT: 153 QRS: -70 QRSD: 144 T: 92 QT: 345 QTc: 475 Interpretive Statements SINUS TACHYCARDIA POSSIBLE LEFT ATRIAL ENLARGEMENT [-0.1mV P WAVE IN V1/V2] INTRAVENTRICULAR CONDUCTION DELAY [130+ ms QRS DURATION] LATERAL MYOCARDIAL INFARCTION , PROBABLY RECENT [40+ ms Q WAVE AND/OR ST/T ABNORMALITY IN I/aVL/V5/V6] Possibly old inferior wall myocardial infarction ACUTE [place] INTERPRETATION BASED ON A DEFAULT AGE OF 40 YEARS Compared to ECG 10/24/2019 18:42:20 Sinus rhythm no longer present Myocardial infarct finding still present Electronically Signed On 01-22-2020 9:37:28 CDT by Paradise Rucker M.D. [email or web address]
[2020-01-22] VITALS (46 sets, daily range): BP systolic 106–185; BP diastolic 61–137; PULSE 59–106; RESP 0–31; TEMP 36.4–36.7; O2SAT 62–100
[2020-01-22] MEDS: levalbuterol 1.25 mg/3 mL Neb 3.75 MG INHALATION (00:09)
[2020-01-22 00:11] LABS: Basophils % 0.2 %; Eosinophils % 0.2 %; Hematocrit 53.4 % (42.0-52.0); Hemoglobin 17.4 g/dL (11.7-16.6); Lymphocytes % 22.3 %; Mean Corpuscular HGB Conc 32.6 g/dL (30.0-36.0); Mean Corpuscular Hemoglobin 31.7 pg (28.0-34.0); Mean Corpuscular Volume 97.3 fL (80-94); Mean Platelet Volume 9.8 fL (7.4-10.4); Monocytes # 1.1 10^3/uL (0.2-0.9); Neutrophils # 9.18 10^3/uL (1.8-7.7); Neutrophils % 68.9 %; Nucleated Red Blood Cells % 0 %; Platelet Count 275 10^3/cmm (130-400); Red Blood Count 5.49 10^6/uL (4.1-5.3); Red Cell Distribution Width 15.8 % (12.1-15.1); White Blood Count 13.3 10^3/uL (4.0-10.0)
[2020-01-22 00:15] LABS: ABG PCO2 45.3 mmHg (35-45); ABG PH Result 7.34 (7.35-7.45); Arterial Blood Gas Hematocrit 53.2 % (42-52); Base Excess ABG -1.7 mmol/L (-2.0-2.0); Blood Gas Allen Test Pos; Blood Gas LPM 3.5 %; Blood Gas Sample Site Radial, right; Blood Gas Sample Type Arterial; Carboxyhemoglobin 1.4 %THgb (0.4-20.1); HCO3 ABG 24.5 mmol/L (22-26); HGB O2 Sat 96.9 % (95-100); Ionized Calcium Level - ABG 1.3 mmol/L (1.1-1.4); Methemoglobin 0.6 % (0.4-1.5); Oxygen Device NC; Oxygen Saturation ABG 98.8; Potassium Level - ABG 3.5 mmol/L (3.5-5.0); Total Hemoglobin 17.4 g/dL (14-18)
[2020-01-22] MEDS: nitroglycerin drip 50 MG/250 ML PREMIX IV (00:25)
--- NOTE | 2020-01-22 00:26 | PC.NURSE ---
Covid swab collected and sent to lab
[2020-01-22 00:38] LABS: Lactic Sepsis W/Reflex 1.9 mmol/L (0.5-2.2)
[2020-01-22 00:41] LABS: Troponin(5th) Baseline 139 ng/L (0-15)
[2020-01-22 00:44] LABS: Alanine Aminotransferase 17 U/L (0-41); Albumin Level 4.1 g/dL (3.5-5.2); Alkaline Phosphatase 23 IU/L (40-130); Anion Gap 17.5 (5-19); Aspartate Amino Transferase 30 U/L (0-40); Blood Urea Nitrogen 40 mg/dL (8-23); Calcium 9.7 mg/dL (8.5-10.5); Carbon Dioxide 24 mmol/L (22-29); Chloride 100 mmol/L (98-107); Globulin 2.1 g/dL (1.3-4.6); Glucose 120 mg/dL (65-115); Lipase 80 U/L (13-60); Magnesium 2.1 mg/dL (1.7-2.3); Osmolality Calculated 285 mOsm/kg (285-295); Potassium 3.5 mmol/L (3.5-5.1); Sodium 138 mmol/L (136-145); Total Bilirubin 0.5 mg/dL (0.15-1.2); Total Protein 6.2 g/dL (6.6-8.7)
--- NOTE | 2020-01-22 00:44 | ED_ITS ---
HPI - SOB/Dyspnea General: Chief Complaint: Shortness of Breath/Dyspnea Stated Complaint: SHORT OF BREATH X 4 DAYS Time Seen by Provider: 01/21/20 23:51 Source: patient Mode of arrival: ambulatory Limitations: no limitations History of Present Illness: HPI Narrative: Dieter is a 74-year-old male who comes in respiratory distress. He states his been short of breath for the past 2 to 3 days. He denies fever or cough. He states he is more short of breath when he lays flat and much more short of breath when he exerts himself. He complains of dyspnea on exertion but denies chest pain. Patient states that he has had a PE in the past but is currently on Eliquis and has not missed any doses. He does state that he is missed his Plavix today. Patient denies anything that makes his symptoms better but states any type of exertion makes things worse. Associated symptoms: Reports orthopnea; Deny abdominal pain, chest congestion, chest pain, diaphoresis, dizziness, extremity pain, fever(s), hemoptysis, lightheadedness, nausea, palpitations, syncope or vomiting Review of Systems Const: Denies: fever(s), chills, body aches, fatigue, malaise or diaphoresis Eyes: Denies: change in vision, blurry vision, blind spots, photophobia, eye discharge or eye redness ENMT: Denies: throat pain, odynophagia, hoarseness, swelling of lips/tongue, oral sores, ear or mastoid pain, ear discharge, change in hearing or nasal discharge Card: Reports: swelling of feet/ankles, dyspnea on exertion and orthopnea; Denies: chest pain, palpitations, irregular heart rhythm, edema, lightheadedness, syncope or pre-syncope Resp: Reports: dyspnea; Denies: productive cough, non-productive cough, wheezing, hemoptysis or chest congestion GI: Denies: abdominal pain, nausea, vomiting, hematemesis, coffee ground emesis, heartburn, diarrhea, constipation, GI cramping, hematochezia or melena : Denies: flank pain, dysuria, urinary frequency, urinary urgency or hematuria Musc: Denies: neck pain, back pain, extremity pain, extremity swelling, joint pain, joint swelling, joint redness, joint warmth or joint stiffness Skin/Breast: Denies: rash, pruritus, erythema, skin tenderness or jaundice Neuro: Denies: headache(s), numbness in extremities, weakness in extremities, sensory changes, lack of coordination, difficulty walking, dizziness, vertigo, confusion, Slurred speech present or seizure-like activity Chris/Lymph: Denies: easy bruising, easy bleeding, petechiae, purpura or enlarged lymph nodes All/Imm: Denies: urticaria, throat swelling, tongue swelling, facial swelling or acute wheezing PFSH ED PFSH: Medical History AAA (abdominal aortic aneurysm) (atherosclerosis) CAD (coronary artery disease) COPD (chronic obstructive pulmonary disease) COPD (chronic obstructive pulmonary disease) Diabetes Emphysema of lung Enrolled in chronic care management Erectile dysfunction GERD (gastroesophageal reflux disease) H/O Massey's palsy Hyperlipidemia Hypertension Nicotine dependence Pneumothorax Presented with traumatic left pneumothorax after fall with sixth rib fracture Pneumothorax After a fall Required chest tube placement Pulmonary embolism Subcutaneous emphysema Surgical History H/O arthroscopic knee surgery History of abdominal aortic aneurysm (AAA) repair Stented coronary artery left Social History Smoking and tobacco status: heavy tobacco smoker cigarettes [ Other cigarette details: 1 pack/day ] Alcohol intake: never Substance/Drug Use: never Lives independently: Yes Housing: House Physical Exam Const: COMMON NORMALS: patient oriented x3 GENERAL APPEARANCE: cooperative, in distress, anxious and diaphoretic HENMT: COMMON NORMALS: normocephalic, atraumatic, external ears normal, EAC's normal and Normal external nose present HEAD & SCALP: normal to inspection, normocephalic and atraumatic FACE & SINUS: normal facial exam and face symmetric NOSE: Normal external nose present and Normal nares present EXTERNAL EAR: Yes external ears normal EXTERNAL AUDITORY CANAL: EAC's normal MOUTH: Normal oral and palatal mucosa present, lip normal and tongue normal Eye: COMMON NORMALS: Equal, round and reactive pupils present and conjunctivae normal GENERAL EYE: appearance normal, both eyes and all related structures ALIGNMENT: Yes alignment normal PERIORBITAL: periorbital findings normal EYELID: eyelids normal CONJUNCTIVA: Yes conjunctivae normal SCLERA: sclerae normal PUPIL: Yes Equal, round and reactive pupils present Neck/C-Spine: COMMON NORMALS: full ROM, no lymphadenopathy, supple, no meningeal signs and no JVD GENERAL: Yes normal visual inspection and Yes trachea midline Chest: COMMONS NORMALS: normal inspection of the chest and normal palpation of entire chest wall Resp: EFFORT & INSPECTION: Yes symmetric chest movement, Yes tachypneic, Yes labored, Yes uses accessory muscles and Yes paradoxical thoraco-abdominal movements AUSCULTATION: no crackles, rales, no rhonchi and wheezes Cardio: COMMON NORMALS: no JVD, regular rhythm, S1 normal heart sound present and S2 normal heart sound present RATE: tachycardic RHYTHM: regular rhythm HEART SOUNDS: S1 normal heart sound present, S2 normal heart sound present, no click, no gallops, no murmurs, no rubs and abnormal split S2 GI: COMMON NORMALS: Soft to palpation and No hepatosplenomegaly present PALPATION: Yes Soft to palpation, No Tenderness to palpation present (GI), No Guarding due to palpation present (GI), No Rigid due to palpation, Yes No hepatosplenomegaly present, No Hernia present, No Palpable mass present and No Pulsatile mass present : COMMON NORMALS: Yes no CVA tenderness BLADDER/KIDNEY EXAM: Yes no CVA tenderness Back/Pelvis: COMMON NORMALS: no CVA tenderness, thoracic and lumbar spine normal to inspection, no thoracic nor lumbar tenderness and thoraco-lumbar ROM normal Extremity: COMMON NORMALS: normal to inspection, full ROM, capillary refill normal, no joint enlargement and no calf tenderness NARRATIVE EXTREMITY EXAM: Bilateral lower extremity edema. Neuro: COMMON NORMALS: patient oriented x3, CN's II-XII intact bilaterally, moves all extremities, no focal motor deficits and no sensory deficits noted MENINGEAL SIGNS: Yes no meningeal signs SPEECH: speech normal Psych: COMMON NORMALS: mental status grossly normal, Normal thought process present, cooperative, normal affect, speech normal and activity/motor behavior normal SPEECH: Yes normal speech THOUGHT PROCESS: Normal thought process present Skin: COMMON NORMALS: no rashes or lesions noted, turgor normal, no jaundice, no petechiae and no mottling GENERAL SKIN EXAM: no rashes or lesions noted and turgor normal Course Vital Signs: Vital signs: Vital Signs Temperature 98.8 F 01/21/20 23:49 Pulse Rate 74 01/22/20 03:13 Respiratory Rate 26 H 01/22/20 03:13 Blood Pressure 185/114 01/22/20 03:13 Pulse Oximetry 96 01/22/20 03:13 MDM - SOB/Dyspnea MDM Narrative: Medical decision making narrative: Mr. Figueroa is a 74-year-old male who comes in in respiratory distress. His symptoms appear to be secondary to congestive heart failure exacerbation. There is no sign of STEMI on his EKG but his troponin is elevated. Patient has no chest pain but is responding well to BiPAP and Lasix. I do not believe PE as a cause for his symptoms as he is on Eliquis and has not missed any doses. Patient is much more stable now on BiPAP. The case was endorsed to Dr. Wang and he agrees to admit for further evaluation and care. Lab Data: Attestation: I reviewed the patient's lab results. Labs: Lab Results 01/21/20 01/21/20 01/21/20 Range/Units 00:05 23:58 23:58 WBC 13.3 H (4.0-10.0) 10^3/ uL RBC 5.49 H (4.1-5.3) 10^6/u L Hgb 17.4 H (11.7-16.6) g/dL Hct 53.4 H (42.0-52.0) % MCV 97.3 H (80-94) fL MCH 31.7 (28.0-34.0) pg MCHC 32.6 (30.0-36.0) g/dL RDW 15.8 H (12.1-15.1) % Plt Count 275 (130-400) 10^3/c mm MPV 9.8 (7.4-10.4) fL Neut % (Auto) 68.9 % Lymph % (Auto) 22.3 % Gordon % (Auto) 8.0 % Eos % (Auto) 0.2 % Baso % (Auto) 0.2 % Neut # (Auto) 9.18 H (1.8-7.7) 10^3/u L Lymph # (Auto) 3.0 (0.8-4.8) 10^3/u L Gordon # (Auto) 1.1 H (0.2-0.9) 10^3/u L Eos # (Auto) 0.0 (0.0-0.8) 10^3/u L Baso # (Auto) 0.0 (0.0-0.1) 10^3/u L Nucleated RBC % (a uto) 0 % Nucleated RBCs # 0.0 /100WBC PT 15.10 H (10.5-13.3) SECO NDS INR 1.15 (0.8-1.2) Specimen Type Arterial Sample Site Radial, right ABG pH 7.34 L (7.35-7.45) ABG pCO2 45.3 H (35-45) mmHg ABG pO2 123.0 H (80.0-100.0) mmH g ABG HCO3 24.5 (22-26) mmol/L ABG O2 Saturation 98.8 ABG Base Excess -1.7 (-2.0-2.0) mmol/ L Flako Test Pos Hematocrit 53.2 H (42-52) % Hgb O2 Saturation 96.9 (95-100) % Carboxyhemoglobin 1.4 (0.4-20.1) %THgb Methemoglobin 0.6 (0.4-1.5) % Total Hemoglobin 17.4 (14-18) g/dL Sodium 138.0 (131-143) mmol/L Potassium 3.5 (3.5-5.0) mmol/L Glucose 127.0 H (70-115) mg/dL Ionized Calcium 1.3 (1.1-1.4) mmol/L O2 Delivery Device Nc O2 Liters/Min 3.5 % Industrial [employer]neyman ID ellpe Chloride (98-107) mmol/L Carbon Dioxide (22-29) mmol/L Anion Gap (5-19) BUN (8-23) mg/dL Creatinine (0.7-1.2) mg/dL GFR Calculation Calculated Osmolal ity (285-295) mOsm/k g Lactic Acid (0.5-2.2) mmol/L Calcium (8.5-10.5) mg/dL Magnesium (1.7-2.3) mg/dL Total Bilirubin (0.15-1.2) mg/dL AST (0-40) U/L ALT (0-41) U/L Alkaline Phosphata se (40-130) IU/L Troponin T Baselin e (0-15) ng/L Troponin T 120 Min [place] (0-15) ng/L Delta Troponin T (0-10) ABS# NT-Pro-B Natriuret Pep (0-450) pg/mL Total Protein (6.6-8.7) g/dL Albumin (3.5-5.2) g/dL Globulin (1.3-4.6) g/dL Lipase (13-60) U/L SARS-CoV-2 Ag (Rap id) (Negative) 01/21/20 01/21/20 01/21/20 Range/Units 23:58 23:58 23:58 WBC (4.0-10.0) 10^3/ uL RBC (4.1-5.3) 10^6/u L Hgb (11.7-16.6) g/dL Hct (42.0-52.0) % MCV (80-94) fL MCH (28.0-34.0) pg MCHC (30.0-36.0) g/dL RDW (12.1-15.1) % Plt Count (130-400) 10^3/c mm MPV (7.4-10.4) fL Neut % (Auto) % Lymph % (Auto) % Gordon % (Auto) % Eos % (Auto) % Baso % (Auto) % Neut # (Auto) (1.8-7.7) 10^3/u L Lymph # (Auto) (0.8-4.8) 10^3/u L Gordon # (Auto) (0.2-0.9) 10^3/u L Eos # (Auto) (0.0-0.8) 10^3/u L Baso # (Auto) (0.0-0.1) 10^3/u L Nucleated RBC % (a uto) % Nucleated RBCs # /100WBC PT (10.5-13.3) SECO NDS INR (0.8-1.2) Specimen Type Sample Site ABG pH (7.35-7.45) ABG pCO2 (35-45) mmHg ABG pO2 (80.0-100.0) mmH g ABG HCO3 (22-26) mmol/L ABG O2 Saturation ABG Base Excess (-2.0-2.0) mmol/ L Flako Test Hematocrit (42-52) % Hgb O2 Saturation (95-100) % Carboxyhemoglobin (0.4-20.1) %THgb Methemoglobin (0.4-1.5) % Total Hemoglobin (14-18) g/dL Sodium 138 (131-143) mmol/L Potassium 3.5 (3.5-5.0) mmol/L Glucose 120 H (70-115) mg/dL Ionized Calcium (1.1-1.4) mmol/L O2 Delivery Device O2 Liters/Min % Industrial Electrician Journeyman ID Chloride 100 (98-107) mmol/L Carbon Dioxide 24 (22-29) mmol/L Anion Gap 17.5 (5-19) BUN 40 H (8-23) mg/dL Creatinine 1.4 H (0.7-1.2) mg/dL GFR Calculation Not Reportable Calculated Osmolal ity 285 (285-295) mOsm/k g Lactic Acid 1.9 (0.5-2.2) mmol/L Calcium 9.7 (8.5-10.5) mg/dL Magnesium 2.1 (1.7-2.3) mg/dL Total Bilirubin 0.5 (0.15-1.2) mg/dL AST 30 (0-40) U/L ALT 17 (0-41) U/L Alkaline Phosphata se 23 L (40-130) IU/L Troponin T Baselin e 139 H* (0-15) ng/L Troponin T 120 Min [place] (0-15) ng/L Delta Troponin T (0-10) ABS# NT-Pro-B Natriuret Pep > 07391 H (0-450) pg/mL Total Protein 6.2 L (6.6-8.7) g/dL Albumin 4.1 (3.5-5.2) g/dL Globulin 2.1 (1.3-4.6) g/dL Lipase 80 H (13-60) U/L SARS-CoV-2 Ag (Rap id) (Negative) 01/22/20 01/22/20 Range/Units 00:16 01:40 WBC (4.0-10.0) 10^3/ uL RBC (4.1-5.3) 10^6/u L Hgb (11.7-16.6) g/dL Hct (42.0-52.0) % MCV (80-94) fL MCH (28.0-34.0) pg MCHC (30.0-36.0) g/dL RDW (12.1-15.1) % Plt Count (130-400) 10^3/c mm MPV (7.4-10.4) fL Neut % (Auto) % Lymph % (Auto) % Gordon % (Auto) % Eos % (Auto) % Baso % (Auto) % Neut # (Auto) (1.8-7.7) 10^3/u L Lymph # (Auto) (0.8-4.8) 10^3/u L Gordon # (Auto) (0.2-0.9) 10^3/u L Eos # (Auto) (0.0-0.8) 10^3/u L Baso # (Auto) (0.0-0.1) 10^3/u L Nucleated RBC % (a uto) % Nucleated RBCs # /100WBC PT (10.5-13.3) SECO NDS INR (0.8-1.2) Specimen Type Sample Site ABG pH (7.35-7.45) ABG pCO2 (35-45) mmHg ABG pO2 (80.0-100.0) mmH g ABG HCO3 (22-26) mmol/L ABG O2 Saturation ABG Base Excess (-2.0-2.0) mmol/ L Flako Test Hematocrit (42-52) % Hgb O2 Saturation (95-100) % Carboxyhemoglobin (0.4-20.1) %THgb Methemoglobin (0.4-1.5) % Total Hemoglobin (14-18) g/dL Sodium (131-143) mmol/L Potassium (3.5-5.0) mmol/L Glucose (70-115) mg/dL Ionized Calcium (1.1-1.4) mmol/L O2 Delivery Device O2 Liters/Min % Industrial Electrician Journeyman ID Chloride (98-107) mmol/L Carbon Dioxide (22-29) mmol/L Anion Gap (5-19) BUN (8-23) mg/dL Creatinine (0.7-1.2) mg/dL GFR Calculation Calculated Osmolal ity (285-295) mOsm/k g Lactic Acid (0.5-2.2) mmol/L Calcium (8.5-10.5) mg/dL Magnesium (1.7-2.3) mg/dL Total Bilirubin (0.15-1.2) mg/dL AST (0-40) U/L ALT (0-41) U/L Alkaline Phosphata se (40-130) IU/L Troponin T Baselin e (0-15) ng/L Troponin T 120 Min [place] 126.0 H (0-15) ng/L Delta Troponin T -13.0 L (0-10) ABS# NT-Pro-B Natriuret Pep (0-450) pg/mL Total Protein (6.6-8.7) g/dL Albumin (3.5-5.2) g/dL Globulin (1.3-4.6) g/dL Lipase (13-60) U/L SARS-CoV-2 Ag (Rap id) Negative (Negative) Imaging Data^: CXR: Attestation: I personally reviewed and interpreted this imaging study as follows: My impression: Cardiomegaly but no evidence of pulmonary edema. No focal infiltrates. No pneumothorax. EKG Data^: EKG 1: Attestation: I personally reviewed and interpreted this EKG as follows: EKG Interpretation Date: 01/22/20 EKG interpretation time: 23:57 Interpretation: Sinus tachycardia at 113 beats a minute, normal HI interval, widened QRS interval. Q waves inferiorly, probable previous inferior AK. No acute STEMI. Findings reviewed and confirmed with Dr. Rucker. EKG 2: Attestation: I personally reviewed and interpreted this EKG as follows: EKG Interpretation Date: 01/22/20 EKG interpretation time: 00:55 Interpretation: Normal sinus rhythm at 75 beats a minute, interventricular conduction delay, Q waves inferiorly, Q waves laterally, no acute ST-T wave changes. Discharge Plan Discharge Patient Disposition: Admitted As Inpatient Admit Provider: Konstantin Wang Clinical Impression: Acute exacerbation of CHF (congestive heart failure), Acute exacerbation of chronic obstructive airways disease Condition: Stable Interventions: ED Discharge Assessment Last Done: 01/22/20 02:40 ED Charges Last Done: 01/22/20 02:40 Discharge Date/Time: 01/22/20 02:49 Coding Level of Care Code ED Purchasing Intern for Chg Fwd Exam Comprehensive
--- NOTE | 2020-01-22 00:48 | ECG_ITS ---
[facility] Test Date: 2020-01-22 Pat Name: Dieter Figueroa Department: Room: Gender: Male Draw Hand: : 1945 Requested By: Aida Staley Order Number: [id number] Fatou MD: Paradise Rucker M.D. Measurements Intervals Summers Rate: 75 P: 34 RI: 142 QRS: -61 QRSD: 156 T: 94 QT: 409 QTc: 457 Interpretive Statements SINUS RHYTHM WITH OCCASIONAL VENTRICULAR PREMATURE COMPLEXES INTRAVENTRICULAR CONDUCTION DELAY [130+ ms QRS DURATION] LATERAL MYOCARDIAL INFARCTION , OF INDETERMINATE AGE [40+ ms Q WAVE AND/OR ST/T ABNORMALITY IN I/aVL/V5/V6] Possible old inferior wall myocardial infarction Compared to ECG 01/21/2020 23:57:30 Ventricular premature complex(es) now present Sinus tachycardia no longer present Myocardial infarct finding still present Electronically Signed On 01-22-2020 9:38:41 CDT by Paradise Rucker M.D. [id number]
[2020-01-22 00:58] LABS: SARS Covid-2 Antigen Negative (Negative)
[2020-01-22 01:07] LABS: INR 1.15 (0.8-1.2)
[2020-01-22 01:08] LABS: NT Pro B Type Natriuretic Pept > 70000 pg/mL (0-450)
[2020-01-22] MEDS: FUROsemide 10 mg/mL SDV 4mL 40 MG IVP ×3 (01:21→22:04)
[2020-01-22] MEDS: aspirin 325 mg Tablet PO (01:22)
--- NOTE | 2020-01-22 01:38 | P.HP_ITS ---
Providers/Chief Complaint Primary Care Provider: Keith Rutledge DO Chief Complaint: SHORT OF BREATH X 4 DAYS History of Present Illness Dieter Figueroa is a 74 year old male who carries history of severely reduced ejection fraction 35%, grade 1 diastolic dysfunction, suffered from secondary pneumothorax after a fall, chronic anticoagulation for PE came in with chief complaint of worsening shortness of breath. Patient is stating that he has been feeling very lethargic and tired for last 4 days, he has been smoking 1 pack a day, compliant with his medication but mostly staying in his bed lately, he has not experienced any fever, nausea, vomiting, chest pain, is endorsing orthopnea, PND, dyspnea at rest and on exertion, he has been taking his Eliquis and Lasix on daily basis. He lives alone and tries to manage his daily activities on his own but lately his neighbors are giving him meals twice a day. Because of worsening shortness of breath he decided to come to the ED for further evaluation. Diagnostics in the ER revealed hypertensive emergency with worsening of congestive heart failure BNP 70,000, troponin 139, patient is awake alert, chest pain-free, EKG is showing wide QRS Q complexes and inferior leads, right bundle branch block which is old BRIDGET Currently doing well on BiPAP, ABG revealed mild respiratory acidosis, COVID antigen neg Currently he is on nitro drip, got 40mg IV Lasix, Review of Systems Const: Reports: chills, body aches, fatigue and malaise Eyes: Denies: change in vision ENMT: Denies: throat pain Card: Reports: swelling of feet/ankles, dyspnea on exertion and orthopnea Resp: Reports: non-productive cough; Denies: dyspnea GI: Denies: abdominal pain, nausea, vomiting or diarrhea : Denies: flank pain Musc: Denies: neck pain Skin/Breast: Reports: lesions, dry skin and nail changes Neuro: Denies: headache(s) Psych: Denies: anxiety or depression Endo: Denies: polyuria Chris/Lymph: Denies: easy bruising All/Imm: Denies: urticaria Medications/Allergies Home Medications Medication Instructions Recorded Confirmed Last Taken Type albuterol sulfate 90 mcg/actuation 2 puff INHALATION Q6H PRN 07/18/19 11/22/19 10/17/19 History aerosol inhaler budesonide-formoterol HFA 160 2 puff INHALATION BID 07/18/19 11/22/19 Unknown History mcg-4.5 mcg/actuation aerosol inhaler [id number] 1 tab PO DAILY 07/18/19 11/22/19 10/24/19 History carvedilol 25 mg tablet 25 mg PO .COMPLEX 07/18/19 11/22/19 10/24/19 History famotidine 20 mg tablet 20 mg PO BID 07/18/19 11/22/19 10/24/19 History isosorbide mononitrate 30 mg 30 mg PO QAM 07/18/19 11/22/19 10/17/19 History tablet,extended release 24 hr metformin 500 mg tablet 500 mg PO BID 07/18/19 11/22/19 10/17/19 History multivitamin 1 tab PO QAM 07/18/19 11/22/19 10/24/19 History nitroglycerin 0.4 mg sublingual 0.4 mg SUBLINGUAL Q5M PRN 07/18/19 11/22/19 Unknown History tablet sennosides 15 mg tablet 15 mg PO QDAY PRN 07/18/19 11/22/19 10/17/19 History sildenafil 100 mg tablet 100 mg PO QDAY PRN 07/18/19 11/22/19 Unknown History fluoxetine 20 mg capsule 20 mg PO BID #60 cap 08/25/19 11/22/19 10/24/19 Rx omeprazole 20 mg capsule,delayed 20 mg PO DAILY #30 cap 08/25/19 11/22/19 10/17/19 Rx release apixaban [Eliquis] 5 mg PO BID 90 Days #180 tab 10/26/19 11/22/19 Unknown Rx furosemide [Lasix] 20 mg PO DAILY #30 tab 10/26/19 11/22/19 Unknown Rx ibuprofen 400 mg PO Q12H PRN #0 tab 10/26/19 11/22/19 Unknown Rx lidocaine 1 patch TOPICAL DAILY PRN #1 each 10/26/19 11/22/19 Unknown Rx oxycodone 10 mg PO Q6H PRN #0 tab 10/26/19 11/22/19 10/24/19 Rx potassium chloride 20 meq PO DAILY #30 each 10/26/19 11/22/19 Unknown Rx fenofibrate nanocrystallized 145 145 mg PO .noon #30 tab 12/12/19 Unknown Rx mg tablet Allergies Allergy/AdvReac Type Severity Reaction Status Date / Time No Known Allergies Allergy Verified 01/21/20 23:54 PFSH Acute PFSH: Medical History (Updated 01/22/20 @ 02:29 by Konstantin Wang MD) AAA (abdominal aortic aneurysm) (atherosclerosis) CAD (coronary artery disease) COPD (chronic obstructive pulmonary disease) COPD (chronic obstructive pulmonary disease) Diabetes Emphysema of lung Enrolled in chronic care management Erectile dysfunction GERD (gastroesophageal reflux disease) H/O Massey's palsy Hyperlipidemia Hypertension Nicotine dependence Pneumothorax Presented with traumatic left pneumothorax after fall with sixth rib fracture Pneumothorax After a fall Required chest tube placement Pulmonary embolism Subcutaneous emphysema Surgical History H/O arthroscopic knee surgery History of abdominal aortic aneurysm (AAA) repair Stented coronary artery left Social History (Updated 01/22/20 @ 02:13 by Konstantin Wang MD) Smoking and tobacco status: heavy tobacco smoker cigarettes [ Other cigarette details: 1 pack/day ] Alcohol intake: never Substance/Drug Use: never Lives independently: Yes Housing: House Vitals/I&O/Wt Last Vital Signs Temp 98.8 F 01/21/20 23:49 Pulse 82 01/22/20 01:14 Resp 18 01/22/20 01:14 BP 171/108 01/22/20 01:14 Pulse Ox 95 01/22/20 01:14 01/21/20 01/21/20 01/22/20 14:59 22:59 06:59 Intake Total 1.425 / 1.425 Balance 1.425 / 1.425 Physical Exam Narrative: EXAM NARRATIVE: Head to toe examination Patient has unkempt appearance, Poor hygiene Pleasant to communicate, very cooperative during examination S1, S2, active signs of heart failure Bilateral equal vesicular sounds without adventitious sounds Abdomen soft nontender mildly distended bowel sounds sluggish 2+ edema of legs, pedal edema positive EOMI, PERRLA No neurological deficit No AICD Appropriate mood and affect Data : 01/21/20 23:58 01/21/20 23:58 Micro: Microbiology 01/21/20 23:58 Blood Culture - Preliminary Blood SPECIMEN COLLECTED A&P Assessment and plan (1) CHF exacerbation: Status: Acute (2) BRIDGET (acute kidney injury): Status: Acute (3) Personal history of coronary artery disease: Status: Acute (4) COPD (chronic obstructive pulmonary disease): Status: Acute (5) Nicotine dependence: Status: Acute (6) Acute respiratory acidosis: Status: Acute (7) Polycythemia: Status: Acute (8) Hypertensive emergency: Status: Acute Additional A&P Information Acute CHF exacerbation due to hypertensive emergency Patient is actively smoking Requiring nitro drip, diastolic pressure above 110 Discontinue ibuprofen Currently on BiPAP Would use Bumex Chest pain-free, delta troponin negative BNP 70,000 I believe this is gradually worsening of his underlying severely reduced ejection fraction due to ischemic cardiomyopathy I do not see any FÁTIMA/ARB in his home medications, aspirin discontinued after initiation of Eliquis, Continue Imdur Would recommend starting lisinopril once creatinine is better, add metoprolol succinate No AICD Would recommend cardiology follow-up Acute kidney injury Cardiorenal Anticipating improvement with diuresis Ibuprofen discontinued Acute respiratory acidosis with underlying chronic hypoxic respiratory failure At home he is a 3 L of oxygen His symptoms are mostly consistent with right-sided heart failure, chest x-ray is not consistent with severe vascular congestion Currently tolerating BiPAP Polycythemia Has mild leukocytosis with polycythemia Chronic smoker Currently on Eliquis We will follow-up with repeat CBC as previous CBC did not show hemoglobin above 16 Nicotine dependence: Currently smoking about 1 pack a day Need reinforcement to quit smoking Patient is full code Cardiac diet DVT prophylaxis patient is currently on Eliquis for PE Attestations Medical Necessity Statement*: Patient will need more than 2 midnights in the hospital currently need BiPAP for acute respiratory acidosis secondary to CHF exacerbation, on nitro drip for hypertensive emergency Time Spent in Patient Care: (>than 50% of time spent in counselling and/or direct pt care on unit) . 60mins Coding Level of Care Code Acute Consumer Experience Consultant for [employer] Fwd Diagnoses CHF exacerbation I50.9 BRIDGET (acute kidney injury) N17.9 Personal history of coronary artery disease Z86.79 COPD (chronic obstructive pulmonary disease) J44.9 Nicotine dependence F17.200 Acute respiratory acidosis E87.2 Polycythemia D75.1 Hypertensive emergency I16.1
--- NOTE | 2020-01-22 02:58 | USCV_ITS ---
Dieter Figueroa Age: 74 Gender: M : 1945 Exam Date: 01/22/2020 06:24 Ordering Phys: Konstantin Wang MD Technologist: Sarah Sotelo Exam Location: [facility] [place] Indication: WORSENING OF SOB HISTORY: Worsening of SOB PROCEDURES: The venous duplex Doppler examination of both lower extremities was performed in the standard fashion. The following venous structures were evaluated: common femoral vein, profunda vein, proximal portion of the greater saphenous vein, superficial femoral vein, and the popliteal vein. In addition, the posterior tibial and peroneal trunk were evaluated. Serial compression, augmentation maneuvers, and spectral Doppler flow evaluation were performed. FINDINGS: Normal 2-D Doppler and augmentation and compressibility throughout the lower extremity venous structures. Additional imaging through the proximal calf veins also reveals no thrombus. Limited evaluation of the greater saphenous vein is patent with no thrombus. CONCLUSIONS No DVT bilateral lower extremities. Dr. Jo Cuevas DO (Electronically Signed) Final Date: 22 January 2020 16:09 S
--- NOTE | 2020-01-22 05:12 | PC.NURSE ---
PT ARRIVED TO ROOM 112-1. PT AMBULATED TO BED FROM VOSS. PT ON A NITRO DRIP AT 10MCG. BP 173/129. SIDE GLUER NURSE INCREASED NITRO TO 15MCG. PT DENIES CHEST PAIN AT THIS TIME. PT WAS ORIENTATED TO ROOM. PT ON 3L OF O2 AT THIS TIME. WILL CONTINUE TO MONITOR.
[2020-01-22 05:27] LABS: Basophils % 0.1 %; Hematocrit 51.2 % (42.0-52.0); Hemoglobin 16.7 g/dL (11.7-16.6); Lymphocytes # 0.8 10^3/uL (0.8-4.8); Lymphocytes % 7.8 %; Mean Corpuscular HGB Conc 32.6 g/dL (30.0-36.0); Mean Corpuscular Hemoglobin 31.3 pg (28.0-34.0); Mean Corpuscular Volume 96.1 fL (80-94); Mean Platelet Volume 10.1 fL (7.4-10.4); Monocytes # 0.2 10^3/uL (0.2-0.9); Monocytes % 2.5 %; Neutrophils # 8.61 10^3/uL (1.8-7.7); Neutrophils % 89.3 %; Nucleated Red Blood Cells % 0 %; Platelet Count 215 10^3/cmm (130-400); Red Blood Count 5.33 10^6/uL (4.1-5.3); Red Cell Distribution Width 15.5 % (12.1-15.1); White Blood Count 9.6 10^3/uL (4.0-10.0)
[2020-01-22 05:52] LABS: Blood Urea Nitrogen 38 mg/dL (8-23); Carbon Dioxide 25 mmol/L (22-29); Chloride 99 mmol/L (98-107); Glucose 121 mg/dL (65-115); Osmolality Calculated 287 mOsm/kg (285-295); Sodium 139 mmol/L (136-145)
[2020-01-22 06:13] LABS: Anion Gap 18.5 (5-19); Potassium 3.5 mmol/L (3.5-5.1)
[2020-01-22 06:17] LABS: Glucose Point of Care 111 mg/dL (70-110)
[2020-01-22 06:33] LABS: ABG PCO2 49.8 mmHg (35-45); ABG PH Result 7.36 (7.35-7.45); Arterial Blood Gas Hematocrit 52.3 % (42-52); Base Excess ABG 1.7 mmol/L (-2.0-2.0); Blood Gas Allen Test Pos; Blood Gas Sample Site Radial, right; Blood Gas Sample Type Arterial; HCO3 ABG 28.2 mmol/L (22-26); Oxygen Device NC
--- NOTE | 2020-01-22 06:44 | PC.NURSE ---
ANIMAL TREATMENT INVESTIGATOR NURSE INCREASED NITRO TO 30MCG BP 171/96. PT DENIES CHEST PAIN AT THIS TIME. PT STATES THAT THEY ARE FEELING MUCH BETTER. WILL GIVE REPORT TO ONCOMING NURSE.
[2020-01-22 06:49] LABS: Troponin 5 6HR Delta -33.9 ng/L (0-12)
[2020-01-22 06:50] LABS: Troponin 5 6HR 105.1 ng/L (0-15)
[2020-01-22] MEDS: potassium chloride ER 10 mEq Tablet 20 MEQ PO (08:44)
[2020-01-22] MEDS: carvedilol 25 mg Tablet PO ×2 (08:44→17:45)
[2020-01-22] MEDS: hyDRALAzine 10 mg Tablet PO ×2 (08:45→20:21)
[2020-01-22] MEDS: apixaban 5 mg Tablet PO ×2 (08:45→17:45)
[2020-01-22] MEDS: isosorbide mononitrate ER 30 mg Tablet PO (08:45)
[2020-01-22] MEDS: pantoprazole DR 40 mg Tablet PO (08:45)
[2020-01-22] MEDS: bumetanide 0.25 mg/mL SDV 10 mL 1 MG IV (08:46)
[2020-01-22] MEDS: sennosides-docusate Tablet 1 TAB PO (08:47)
[2020-01-22] MEDS: oxyCODONE 5 mg IR Tab/Cap 10 MG PO ×2 (08:57→20:20)
--- NOTE | 2020-01-22 10:19 | PC.CHAP ---
Pastoral Care Encounter/Spiritual Assessment Type of Contact [] Declined director of residential services visit [] Patient/Family/Request visit [] Outpatient visit [] Follow-up visit [] Physician referral [] Code/Alert [x] Routine visit [] Staff referral [] Actively dying [x] Patient sleeping [] Family support [] [] Out of room [] Palliative care [] [] Receiving care in room [] Pre-surgical visit [] Trauma [] Long length of stay [] ICU visit [] Other: Relational/Emotional Strength [] Patient feels connected with others/family/visitors/staff [] Distress [] Loneliness/isolation [] Abandonment Spirituality of Patient [] Person of Ida [] Attends Jehovah'S Witness of their Ida [] Believes in Prayer [] Reads Bible or Spiritism materials [] There are Spiritual issues to be addressed Content Manager Interventions [x] Prayer [] Active listening [] Non-anxious presence [] Spiritual/emotional support [] Crisis/trauma care [] Spiritual counseling [] Bereavement support [] Provided bereavement packet [] Provided Bible/devotional materials [] Provided toy/stuffed animal, coloring book to patient or family member [] Provided Communion [] Anointing/[place] [] Salvation [x] Completed spiritual assessment [] Other: Impact on Illness or Injury [] Angry [] Fearful [] Anxious [] Often cries [] Exhaustion [] Unable to work [] Unable to attend anglican [] Unable to walk/stand [] Unable to read [] Unable to drive [] Unable to eat/drink [] Unable to sleep [] Unable to be with family [] Patient intubated [] Other: Summary Time spent with patient
--- NOTE | 2020-01-22 10:34 | P.PN_ITS ---
Subjective Subjective: Interval history: Diuresed 1.2 L overnight, net negative by 700 mL at this present time. O2 sat between 92 to 95%. Overnight was on BiPAP, now off. Nitro drip at 30 mics currently. Troponin numbers elevated, however with negative delta's. Medications: Reviewed: Yes Vitals/I&O/Wt Last Vital Signs Temp 98.8 F 01/21/20 23:49 Pulse 84 01/22/20 09:00 Resp 0 L 01/22/20 09:00 BP 161/86 01/22/20 09:00 Pulse Ox 92 01/22/20 09:00 01/21/20 01/22/20 01/22/20 22:59 06:59 14:59 Intake Total 32.600 / 32.600 440 / 440 Output Total 625 / 625 600 / 600 Balance -592.400 / -592.400 -160 / -160 Physical Exam Narrative: EXAM NARRATIVE: GEN: Awake, alert and oriented, no acute distress CVS: S1S2 N RS: CTA B/L Abd: Soft, nt/nd , bs+ BUSINESS LAWYER: no focal neuro deficits Data : 01/22/20 05:06 01/22/20 05:06 Micro: Microbiology 01/21/20 01:40 Blood Culture - Preliminary Blood SPECIMEN COLLECTED 01/21/20 23:58 Blood Culture - Preliminary Blood SPECIMEN COLLECTED A&P Assessment and plan (1) Acute exacerbation of CHF (congestive heart failure): Status: Acute Qualifiers: Heart failure type: unspecified Qualified Code(s): I50.9 - Heart failure, unspecified (2) Acute exacerbation of chronic obstructive airways disease: Status: Acute (3) Hypertensive emergency: Status: Acute (4) Acute respiratory acidosis: Status: Acute (5) BRIDGET (acute kidney injury): Status: Acute (6) Personal history of coronary artery disease: Status: Acute (7) Ischemic cardiomyopathy: Status: Acute (8) Polycythemia: Status: Acute Additional A&P Information # Acute CHF exacerbation due to hypertensive emergency Measure I&O accurately, check daily weight Currently net -700 mL. Currently receiving diuresis with Bumex. Home dose appears to be Lasix 20 mg daily. Will discontinue Bumex for now and switch to Lasix 40 mg IV every 12 hours and monitor for response. No new changes on EKG. Patient denies any chest pain at this present time. #Hypertensive urgency, currently on nitro drip at 30 mics. Is already ordered for isosorbide mononitrate 30 mg in the morning. This appears to be his home dose. WWill continue same dose for now and increase if needed. Losartan is being added today Also currently on hydralazine 10 mg 3 times daily. Continue carvedilol 25 mg p.o. twice daily. Echocardiogram from October 2019 with EF of 35%. #Ischemic cardiomyopathy , EF as above Patient has a history of coronary artery disease with multiple stent placements in the past. He has had [place] in 1992 and 2004 and had moderate LV dysfunction going back to at least 2004. Last angiogram in December 2008 showed an LV gram of 45% ; 45% left main normal, LAD 10% ostial LAD, circumflex normal multiple stents and dilated left ventricular cavity. I am unable to see record of any angiograms after this. Currently last EF from October 2019 is at 35%. I am not certain as to why patient is not on any FÁTIMA or ARB at this present time. Will add losartan at 25mg po qd and monitor renal function and potassium. Outpatient cardiology follow up will be set up at discharge start low dose statins, patient is currently on fenofibrate Check lipid panel and Hba1c He was discharged on last admission with Plavix and Eliquis, however i do not see plavix listed on his home medications, will recah out to PCP to check if plavix was stopped because of any complications. WIll resume for now # Hypercapneic respiratory failure, acute on chronic, likely 2/2 combination of COPD and CHF Currently on BiPAP overnight Recent PE, on Eliquis uses 3lpm NC at home add duonebs q6h carmine # Cr currently at 1.2, appears o be his baseline # Polycythemia secondary to chronic smoking # recent h/o PE : continue Eliquis 5mg po BID # DM: on insulin sliding scale Patient is full code Cardiac diet DVT prophylaxis patient is currently on Eliquis for PE Attestations Medical Necessity Statement*: optimizatiopn of respiratory status and BP control Coding Level of Care Code Acute Fairing Worker for Caty Fwmadhu Diagnoses Acute exacerbation of CHF (congestive heart failure) I50.9 Heart failure type: unspecified Acute exacerbation of chronic obstructive airways disease J44.1 Hypertensive emergency I16.1 Acute respiratory acidosis E87.2 BRIDGET (acute kidney injury) N17.9 Personal history of coronary artery disease Z86.79 Ischemic cardiomyopathy I25.5 Polycythemia D75.1
--- NOTE | 2020-01-22 10:46 | PC.RESP ---
Smoking Cessation and Pulmonary Rehab information sent to patient.
[2020-01-22] MEDS: clopidogrel 75 mg Tablet PO (11:22)
[2020-01-22] MEDS: fenofibrate 145 mg Tablet PO (11:22)
[2020-01-22] MEDS: losartan 50 mg Tablet 25 MG PO (11:22)
[2020-01-22 11:28] LABS: Estmated Average Glucose 148; Hemoglobin A1C 6.8 % (4.0-6.0)
[2020-01-22 11:31] LABS: Glucose Point of Care 291 mg/dL (70-110)
[2020-01-22 12:09] LABS: Chol HDL Ratio 6.75 mg/dL (1.0-5.00); Cholesterol 243 mg/dL (0-200); HDL Cholesterol 36 mg/dL (60-100); LDL Cholesterol Calculated 174 mg/dL (50-129); LDL HDL Ratio 4.83 RATIO (0.00-3.22); Triglycerides 163 mg/dL (0-150)
[2020-01-22] MEDS: ipratropium-albuterol 3 mL Neb INHALATION ×2 (14:07→20:15)
--- NOTE | 2020-01-22 15:15 | PC.NURSE ---
Contacted Dr. Valentin regarding 3pm hydralazine dose. Reported patient's current BP of 122/69 and that nitro infusion has been off since 1300. Order received to hold 3pm dose of hydralazine today.
[2020-01-22 16:48] LABS: Glucose Point of Care 303 mg/dL (70-110)
[2020-01-22] MEDS: atorvastatin 40 mg Tablet 20 MG PO (20:19)
--- NOTE | 2020-01-22 20:24 | PC.NURSE ---
PT IS RESTING IN BED. PT STATES THAT THEY ARE BREATHING ALOT BETTER THAT LAST NIGHT. PT DENIES CHEST PAIN AT THIS TIME. DR WANTS HYDRALAZINE 10MG PO GIVEN. WILL CONTINUE TO MONITOR.
[2020-01-22 20:38] LABS: Glucose Point of Care 196 mg/dL (70-110)
[2020-01-23] VITALS (16 sets, daily range): BP systolic 112–139; BP diastolic 58–76; PULSE 56–68; RESP 10–18; TEMP 35.8–37; O2SAT 96–100
[2020-01-23] MEDS: ipratropium-albuterol 3 mL Neb INHALATION ×4 (03:12→21:30)
[2020-01-23 04:41] LABS: Basophils % 0.1 %; Eosinophils % 0.4 %; Hematocrit 43.8 % (42.0-52.0); Hemoglobin 14.3 g/dL (11.7-16.6); Lymphocytes # 1.4 10^3/uL (0.8-4.8); Lymphocytes % 12.2 %; Mean Corpuscular HGB Conc 32.6 g/dL (30.0-36.0); Mean Corpuscular Hemoglobin 31.8 pg (28.0-34.0); Mean Corpuscular Volume 97.3 fL (80-94); Mean Platelet Volume 10.8 fL (7.4-10.4); Monocytes # 1.1 10^3/uL (0.2-0.9); Monocytes % 9.8 %; Neutrophils # 8.61 10^3/uL (1.8-7.7); Neutrophils % 77.1 %; Nucleated Red Blood Cells % 0 %; Platelet Count 217 10^3/cmm (130-400); Red Cell Distribution Width 15.6 % (12.1-15.1); White Blood Count 11.2 10^3/uL (4.0-10.0)
[2020-01-23 05:10] LABS: Alanine Aminotransferase 12 U/L (0-41); Alkaline Phosphatase 17 IU/L (40-130); Anion Gap 10.1 (5-19); Aspartate Amino Transferase 19 U/L (0-40); Blood Urea Nitrogen 36 mg/dL (8-23); Calcium 8.4 mg/dL (8.5-10.5); Carbon Dioxide 34 mmol/L (22-29); Chloride 98 mmol/L (98-107); Globulin 1.6 g/dL (1.3-4.6); Glucose 92 mg/dL (65-115); Osmolality Calculated 285 mOsm/kg (285-295); Potassium 3.1 mmol/L (3.5-5.1); Sodium 139 mmol/L (136-145); Total Bilirubin 0.5 mg/dL (0.15-1.2); Total Protein 4.6 g/dL (6.6-8.7)
[2020-01-23 06:10] LABS: Glucose Point of Care 97 mg/dL (70-110)
[2020-01-23] MEDS: clopidogrel 75 mg Tablet PO (08:59)
[2020-01-23] MEDS: carvedilol 25 mg Tablet PO ×2 (08:59→17:14)
[2020-01-23] MEDS: hyDRALAzine 10 mg Tablet PO (08:59)
[2020-01-23] MEDS: losartan 50 mg Tablet 25 MG PO (08:59)
[2020-01-23] MEDS: pantoprazole DR 40 mg Tablet PO (08:59)
[2020-01-23] MEDS: apixaban 5 mg Tablet PO ×2 (08:59→17:14)
[2020-01-23] MEDS: sennosides-docusate Tablet 1 TAB PO (08:59)
[2020-01-23] MEDS: FUROsemide 10 mg/mL SDV 4mL 40 MG IVP ×2 (09:42→20:43)
[2020-01-23] MEDS: potassium chloride ER 10 mEq Tablet 60 MEQ PO (10:14)
--- NOTE | 2020-01-23 10:22 | PC.NURSE ---
Dr. Valentin on unit rounding on patients. Patient's potassium level 3.1, Dr. Valentin gave verbal orders for one time dose of 60 meq oral potassium, due to patient receiving Lasix.
[2020-01-23 11:30] LABS: Glucose Point of Care 248 mg/dL (70-110)
[2020-01-23] MEDS: fenofibrate 145 mg Tablet PO (11:39)
--- NOTE | 2020-01-23 11:55 | PM.PN ---
Subjective Subjective: Interval history: urine output 3.8L, net negative 2.9L, weight up 88, saturating well on 2lpm supplemntal 02, LE edema persists, unchanged today. renal function stable. Off nitro drip since 1 pm yesetrday, BP better controlled after addition of losartan. Medications: Reviewed: Yes Vitals/I&O/Wt Last Vital Signs Temp 98.6 F 01/23/20 11:23 Pulse 63 01/23/20 11:23 Resp 16 01/23/20 11:23 BP 137/67 01/23/20 11:23 Pulse Ox 100 01/23/20 11:23 01/22/20 01/23/20 01/23/20 22:59 06:59 14:59 Intake Total 240 / 987.450 700 / 1687.450 360 / 360 Output Total 465 / 2225 1225 / 3450 950 / 950 Balance -225 / -1237.550 -525 / -1762.550 -590 / -590 Weight last 48 hrs Weight 88.054 kg Weight 86.818 kg Physical Exam Narrative: EXAM NARRATIVE: GEN: Awake, alert and oriented, no acute distress CVS: S1S2 N RS: CTA B/L Abd: Soft, nt/nd , bs+ POURER OFF: no focal neuro deficits EXT: 2+ pitting edema B/L Data : 01/23/20 04:07 01/23/20 04:07 Micro: Microbiology 01/21/20 01:40 Blood Culture - Preliminary Blood NEGATIVE TO DATE 01/21/20 23:58 Blood Culture - Preliminary Blood NEGATIVE TO DATE A&P Assessment and plan (1) Acute exacerbation of CHF (congestive heart failure): Status: Acute Qualifiers: Heart failure type: unspecified Qualified Code(s): I50.9 - Heart failure, unspecified (2) Acute exacerbation of chronic obstructive airways disease: Status: Acute (3) Hypertensive emergency: Status: Acute (4) Acute respiratory acidosis: Status: Acute (5) BRIDGET (acute kidney injury): Status: Acute (6) Personal history of coronary artery disease: Status: Acute (7) Ischemic cardiomyopathy: Status: Acute (8) Polycythemia: Status: Acute Additional A&P Information # Acute CHF exacerbation due to hypertensive emergency Measure I&O accurately, check daily weight Currently net -2.9 L. Continue Lasix 40 mg IV every 12 hours and monitor for response. No new changes on EKG. Patient denies any chest pain at this present time.States breathing is improving #Hypertensive urgency, titrated off nitro drip yesetrday. Continue isosorbide mononitrate 30 mg Losartan 25mh po qd added yesterday, stable renal function and K levels Also currently on hydralazine 10 mg 3 times daily, change to prn for SBP>160 Continue carvedilol 25 mg p.o. twice daily. Echocardiogram from October 2019 with EF of 35%. #Ischemic cardiomyopathy , EF as above Patient has a history of coronary artery disease with multiple stent placements in the past. He has had [place] in 1992 and 2004 and had moderate LV dysfunction going back to at least 2004. Last angiogram in December 2008 showed an LV gram of 45% ; 45% left main normal, LAD 10% ostial LAD, circumflex normal multiple stents and dilated left ventricular cavity. I am unable to see record of any angiograms after this. Currently last EF from October 2019 is at 35%. I am not certain as to why patient is not on any FÁTIMA or ARB at this present time. start low dose statins with atorvastatin 20mg qd, patient is currently on fenofibrate as well, will request outpatient records from [facility] Hba1c 6.8, on outpatient metformin LDL 174, HDL 36, started on Statins. 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 Monitor Hb # Hypercapneic respiratory failure, acute on chronic, likely 2/2 combination of COPD and CHF BiPAP overnight Recent PE, on Eliquis uses 3lpm NC at home add duonebs q6h carmine # Cr currently at 1.2, appears o be his baseline # Polycythemia secondary to chronic smoking # recent h/o PE : continue Eliquis 5mg po BID # DM: on insulin sliding scale Patient is full code Cardiac diet DVT prophylaxis patient is currently on Eliquis for PE Attestations Medical Necessity Statement*: need for iv diuresis, optimization of cardiac medications Coding Level of Care Code Acute Multicut Line Operator for g Fwd Diagnoses Acute exacerbation of CHF (congestive heart failure) I50.9 Heart failure type: unspecified Acute exacerbation of chronic obstructive airways disease J44.1 Hypertensive emergency I16.1 Acute respiratory acidosis E87.2 BRIDGET (acute kidney injury) N17.9 Personal history of coronary artery disease Z86.79 Ischemic cardiomyopathy I25.5 Polycythemia D75.1
[2020-01-23 16:39] LABS: Glucose Point of Care 131 mg/dL (70-110)
[2020-01-23] MEDS: oxyCODONE 5 mg IR Tab/Cap 10 MG PO (17:14)
--- NOTE | 2020-01-23 19:02 | PC.NURSE ---
Received report from SUNNY Leonard/Arlyn Mcdaniel RN. Patient resting in bed with eyes closed. No distress observed.
[2020-01-23 20:40] LABS: Glucose Point of Care 140 mg/dL (70-110)
[2020-01-23] MEDS: atorvastatin 40 mg Tablet 20 MG PO (20:43)
--- NOTE | 2020-01-23 20:49 | PC.NURSE ---
Patient requested Lasix early does not want to be up peeing all night.
[2020-01-24] VITALS (16 sets, daily range): BP systolic 97–126; BP diastolic 43–60; PULSE 59–72; RESP 10–19; TEMP 36.6–36.8; O2SAT 95–99
[2020-01-24] MEDS: ipratropium-albuterol 3 mL Neb INHALATION ×4 (03:00→20:10)
[2020-01-24] MEDS: oxyCODONE 5 mg IR Tab/Cap 10 MG PO ×3 (03:34→22:28)
[2020-01-24 04:54] LABS: Basophils % 0.1 %; Eosinophils # 0.1 10^3/uL (0.0-0.8); Eosinophils % 0.8 %; Hematocrit 44.2 % (42.0-52.0); Hemoglobin 14.4 g/dL (11.7-16.6); Lymphocytes # 1.5 10^3/uL (0.8-4.8); Lymphocytes % 15.4 %; Mean Corpuscular HGB Conc 32.6 g/dL (30.0-36.0); Mean Corpuscular Volume 95.3 fL (80-94); Mean Platelet Volume 10.2 fL (7.4-10.4); Monocytes % 10.9 %; Neutrophils # 6.92 10^3/uL (1.8-7.7); Neutrophils % 72.5 %; Nucleated Red Blood Cells % 0 %; Platelet Count 201 10^3/cmm (130-400); Red Blood Count 4.64 10^6/uL (4.1-5.3); Red Cell Distribution Width 15.6 % (12.1-15.1); White Blood Count 9.6 10^3/uL (4.0-10.0)
[2020-01-24] MEDS: isosorbide mononitrate ER 30 mg Tablet PO (05:23)
[2020-01-24 05:49] LABS: Alanine Aminotransferase 13 U/L (0-41); Albumin Level 3.1 g/dL (3.5-5.2); Alkaline Phosphatase 26 IU/L (40-130); Anion Gap 9.1 (5-19); Aspartate Amino Transferase 19 U/L (0-40); Blood Urea Nitrogen 31 mg/dL (8-23); Calcium 8.1 mg/dL (8.5-10.5); Carbon Dioxide 36 mmol/L (22-29); Chloride 95 mmol/L (98-107); Globulin 1.8 g/dL (1.3-4.6); Glucose 134 mg/dL (65-115); Osmolality Calculated 283 mOsm/kg (285-295); Potassium 3.1 mmol/L (3.5-5.1); Sodium 137 mmol/L (136-145); Total Bilirubin 0.4 mg/dL (0.15-1.2); Total Protein 4.9 g/dL (6.6-8.7)
[2020-01-24 06:20] LABS: Glucose Point of Care 112 mg/dL (70-110)
[2020-01-24] MEDS: sennosides-docusate Tablet 1 TAB PO (07:44)
[2020-01-24] MEDS: clopidogrel 75 mg Tablet PO (07:45)
[2020-01-24] MEDS: losartan 50 mg Tablet 25 MG PO (07:45)
[2020-01-24] MEDS: pantoprazole DR 40 mg Tablet PO (07:46)
[2020-01-24] MEDS: carvedilol 25 mg Tablet PO ×2 (07:46→18:03)
[2020-01-24] MEDS: apixaban 5 mg Tablet PO ×2 (07:46→18:03)
[2020-01-24] MEDS: FUROsemide 10 mg/mL SDV 4mL 40 MG IVP (10:00)
[2020-01-24 11:40] LABS: Glucose Point of Care 113 mg/dL (70-110)
[2020-01-24] MEDS: fenofibrate 145 mg Tablet PO (12:59)
[2020-01-24 16:17] LABS: Glucose Point of Care 112 mg/dL (70-110)
--- NOTE | 2020-01-24 16:34 | PC.NURSE ---
Dr calhoun at bedside for assessment and rounding discussed potassium levels, lasix dosage and patients pain verbal instructions given to change IVP lasix to PO; up dose to 60 mg; give 40meq of PO potassium now; place lidocaine patch to lower back to assist with pain.
--- NOTE | 2020-01-24 16:36 | P.PN_ITS ---
Subjective Subjective: Interval history: improving today, LE edema is better, encouraged to participate with PT Medications: Reviewed: Yes Vitals/I&O/Wt Last Vital Signs Temp 98.1 F 01/24/20 15:53 Pulse 63 01/24/20 15:53 Resp 16 01/24/20 15:53 BP 116/58 01/24/20 15:53 Pulse Ox 96 01/24/20 15:53 01/24/20 01/24/20 01/24/20 06:59 14:59 22:59 Intake Total 960 / 2364 720 / 720 Output Total 1450 / 3500 350 / 350 Balance -490 / -1136 370 / 370 Weight last 48 hrs Weight 90.52 kg Weight 87.997 kg Weight 88.054 kg Weight 86.818 kg Physical Exam Narrative: EXAM NARRATIVE: GEN: Awake, alert and oriented, no acute distress CVS: S1S2 N RS: CTA B/L Abd: Soft, nt/nd , bs+ VEGETABLE TIER: no focal neuro deficits Data : 01/24/20 04:46 01/24/20 04:46 A&P Assessment and plan (1) Acute exacerbation of CHF (congestive heart failure): Status: Acute Qualifiers: Heart failure type: unspecified Qualified Code(s): I50.9 - Heart failure, unspecified (2) Acute exacerbation of chronic obstructive airways disease: Status: Acute (3) Hypertensive emergency: Status: Acute (4) Acute respiratory acidosis: Status: Acute (5) BRIDGET (acute kidney injury): Status: Acute (6) Personal history of coronary artery disease: Status: Acute (7) Ischemic cardiomyopathy: Status: Acute (8) Polycythemia: Status: Acute Additional A&P Information # Acute CHF exacerbation due to hypertensive emergency Measure I&O accurately, check daily weight change lasix iv to 60meq po q12h in anticipation of discharge over the next 2- 48hrs No new changes on EKG. Patient denies any chest pain at this present time.States breathing is improving #Hypertensive urgency, titrated off nitro drip yesetrday. Continue isosorbide mononitrate 30 mg Losartan 25mh po qd added yesterday, stable renal function and K levels Also currently on hydralazine 10 mg 3 times daily, change to prn for SBP>160 Continue carvedilol 25 mg p.o. twice daily. Echocardiogram from October 2019 with EF of 35%. #Ischemic cardiomyopathy , EF as above Patient has a history of coronary artery disease with multiple stent placements in the past. He has had [place] in 1992 and 2004 and had moderate LV dysfunction going back to at least 2004. Last angiogram in December 2008 showed an LV gram of 45% ; 45% left main normal, LAD 10% ostial LAD, circumflex normal multiple stents and dilated left ventricular cavity. I am unable to see record of any angiograms after this. Currently last EF from October 2019 is at 35%. I am not certain as to why patient is not on any FÁTIMA or ARB at this present time. start low dose statins with atorvastatin 20mg qd, patient is currently on fenofibrate as well, will request outpatient records from [facility] Hba1c 6.8, on outpatient metformin LDL 174, HDL 36, started on Statins. 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 Monitor Hb # Hypercapneic respiratory failure, acute on chronic, likely 2/2 combination of COPD and CHF BiPAP overnight Recent PE, on Eliquis uses 3lpm NC at home add duonebs q6h carmine # Cr currently at 1.2, appears o be his baseline # Polycythemia secondary to chronic smoking # recent h/o PE : continue Eliquis 5mg po BID # DM: on insulin sliding scale Patient is full code Cardiac diet DVT prophylaxis patient is currently on Eliquis for PE Attestations Medical Necessity Statement*: Slowly improving, anticipate discharge in the next 24-48 hrs Coding Level of Care Code Acute Shovel Log Loader Operator for Caty Fwd Diagnoses Acute exacerbation of CHF (congestive heart failure) I50.9 Heart failure type: unspecified Acute exacerbation of chronic obstructive airways disease J44.1 Hypertensive emergency I16.1 Acute respiratory acidosis E87.2 BRIDGET (acute kidney injury) N17.9 Personal history of coronary artery disease Z86.79 Ischemic cardiomyopathy I25.5 Polycythemia D75.1
[2020-01-24] MEDS: potassium chloride ER 10 mEq Tablet 40 MEQ PO (18:03)
--- NOTE | 2020-01-24 19:45 | PC.NURSE ---
Asked patient if he would like a bath/shower. Patient stated No, not at this time. He would tell me if he needed one.
[2020-01-24] MEDS: lidocaine 5% Patch 1 PATCH TOPICAL (20:46)
[2020-01-24] MEDS: atorvastatin 40 mg Tablet 20 MG PO (20:46)
[2020-01-24 21:14] LABS: Glucose Point of Care 156 mg/dL (70-110)
[2020-01-24] MEDS: FUROsemide 40 mg Tablet PO (22:29)
--- NOTE | 2020-01-24 22:39 | PC.NURSE ---
PT IS RESTING IN BED. PT C/O 7/10 PAIN IN THE HIPS. PRN OXYCODONE WAS GIVEN. PT WANTED MORE SNACKS AFTER EATING 6 CRACKERS AND 3 PUDDINGS. BS WAS 156. 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 PT STATES THAT THEY ARE BORED AND JUST WANT PEOPLE TO TALK WITH. MODEL HOME SALES GREETER IN ROOM AT THIS TIME WITH PT. WILL CONTINUE TO MONITOR.
[2020-01-25] VITALS (14 sets, daily range): BP systolic 94–131; BP diastolic 43–71; PULSE 65–76; RESP 10–18; TEMP 36.2–36.7; O2SAT 94–99
[2020-01-25] MEDS: ipratropium-albuterol 3 mL Neb INHALATION ×3 (02:09→15:04)
[2020-01-25] MEDS: oxyCODONE 5 mg IR Tab/Cap 10 MG PO (05:23)
[2020-01-25] MEDS: isosorbide mononitrate ER 30 mg Tablet PO (05:24)
--- NOTE | 2020-01-25 06:32 | PC.NURSE ---
PT WAS UP MOST OF THE NIGHT WANTING TO TALK TO SOMEONE. PT ATE SEVERAL PUDDINGS AND PACKAGES OF [place] CRACKERS. PT C/O 12/28 PAIN IN HIPS. PRN OXYCODONE WAS GIVEN. WILL CONTINUE TO MONITOR.
[2020-01-25 06:36] LABS: Glucose Point of Care 116 mg/dL (70-110)
[2020-01-25] MEDS: lidocaine 5% Patch 1 PATCH TOPICAL (09:15)
[2020-01-25] MEDS: apixaban 5 mg Tablet PO ×2 (09:17→18:07)
[2020-01-25] MEDS: carvedilol 25 mg Tablet PO ×2 (09:17→18:07)
[2020-01-25] MEDS: sennosides-docusate Tablet 1 TAB PO (09:17)
[2020-01-25] MEDS: clopidogrel 75 mg Tablet PO (09:17)
[2020-01-25] MEDS: pantoprazole DR 40 mg Tablet PO (09:17)
--- NOTE | 2020-01-25 09:25 | PC.SOCIAL ---
IMM Update Pg 2 of IMM updated and copy provided to patient.
[2020-01-25 10:45] LABS: Glucose Point of Care 161 mg/dL (70-110)
[2020-01-25] MEDS: fenofibrate 145 mg Tablet PO (11:47)
[2020-01-25] MEDS: FUROsemide 40 mg Tablet PO (11:47)
--- NOTE | 2020-01-25 11:50 | PC.NURSE ---
patient lasix dose admin delayed due to patient being up to shower and working with PT
--- NOTE | 2020-01-25 16:44 | PM.DCS ---
Discharge Providers Date of Admission: 01/22/20 02:34 Date of Discharge: January 25, 2020 Attending Provider at Admission: Konstantin Wang MD Attending Provider at Discharge: Quin Valentin MD Primary Care Provider: Keith Rutledge DO Diagnoses at Discharge Discharge Diagnosis (1) Acute exacerbation of CHF (congestive heart failure): Status: Acute Qualifiers: Heart failure type: unspecified Qualified Code(s): I50.9 - Heart failure, unspecified (2) Acute exacerbation of chronic obstructive airways disease: Status: Acute (3) Hypertensive emergency: Status: Acute (4) Acute respiratory acidosis: Status: Acute (5) BRIDGET (acute kidney injury): Status: Acute (6) Personal history of coronary artery disease: Status: Acute (7) Ischemic cardiomyopathy: Status: Acute (8) Polycythemia: Status: Acute Reason for Visit Reason for Visit: SHORT OF BREATH X 4 DAYS Hospital Course Discharge Summary: Dieter Figueroa is a 74 year old male who carries history of severely reduced ejection fraction 35%, grade 1 diastolic dysfunction, suffered from secondary pneumothorax after a fall, chronic anticoagulation for PE came in with chief complaint of worsening shortness of breath. Hospital course as below: # Acute CHF exacerbation due to hypertensive emergency Initially treated with iv diuresis, then changed over to po lasix. Net negative 2.7L at discharge. wt 86--> 84kg on discharge. Back on home 02 supplementation of 3lpm No new changes on EKG. Patient denies any chest pain at this present time.States breathing is improving #Hypertensive urgency, titrated off nitro drip which was on for ~24 hrs. Continued isosorbide mononitrate 30 mg Losartan 25mg po qd added , stable renal function and K levels, BP controlled Continue carvedilol 25 mg p.o. twice daily. Echocardiogram from October 2019 with EF of 35%. #Ischemic cardiomyopathy , EF as above Patient has a history of coronary artery disease with multiple stent placements in the past. He has had TN in 1992 and 2004 and had moderate LV dysfunction going back to at least 2004. Last angiogram in December 2008 showed an LV gram of 45% ; 45% left main normal, LAD 10% ostial LAD, circumflex normal multiple stents and dilated left ventricular cavity. I am unable to see record of any angiograms after this. Currently last EF from October 2019 is at 35%. I am not certain as to why patient is not on any FÁTIMA or ARB at this present time. Started on this admission started low dose statins with atorvastatin 20mg qd, patient is currently on fenofibrate as well, will need to be readdressed as outpatient as he can likely be on statins alone Hba1c 6.8, on outpatient metformin, no changes LDL 174, HDL 36, started on Statins. 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 Monitor Hb # Hypercapneic respiratory failure, acute on chronic, likely 2/2 combination of COPD and CHF BiPAP overnight, on CPAP at home at night time Recent PE, on Eliquis uses 3lpm NC at home resume home inhalers on discharge # Cr currently at 1.0-1.2, appears to be his baseline # Polycythemia secondary to chronic smoking # recent h/o PE : continue Eliquis 5mg po BID # DM: Metformin Patient is full code Cardiac diet DVT prophylaxis patient is currently on Eliquis for PE Physical Exam Narrative: EXAM NARRATIVE: GEN: Awake, alert and oriented, no acute distress CVS: S1S2 N RS: CTA B/L Abd: Soft, nt/nd , bs+ TIMERS INSPECTOR: no focal neuro deficits LE edema pitting +, improved since admission Discharge Data Data Completed and Pending: Completed Studies During Hospitalization Category Date Time Status XR chest 1V hamzah ble [id number] Stat Exams 01/21/20 23:51 [place] [id number] Routin e Ultrasound 01/22/20 02:58 Completed Pending at discharge Category Date Time Status Arterial Blood Ga s Full Stat Lab 01/21/20 00:05 Results Blood Culture Sta t Lab 01/21/20 01:40 Results Labs from last 24 hours 01/25/20 01/25/20 01/24/20 10:41 06:31 21:11 POC Glucose 161 116 156 Vitals: Last Vital Signs Temp 97.3 F L 01/25/20 14:56 Pulse 76 01/25/20 15:08 Resp 18 01/25/20 15:06 BP 131/59 01/25/20 14:56 Pulse Ox 96 01/25/20 15:06 Discharge Plan Discharge Patient Disposition: Home Condition: Stable Prescriptions: New losartan 50 mg Tablet 12.5 mg PO DAILY 30 Days Qty: 30 RF: 0 atorvastatin 40 mg Tablet 20 mg PO BEDTIME 30 Days RF: 0 clopidogrel 75 mg Tablet 75 mg PO DAILY 30 Days RF: 1 Continued carvedilol 25 mg tablet 25 mg PO .COMPLEX RF: 0 isosorbide mononitrate 30 mg tablet extended release 24 hr 30 mg PO QAM RF: 0 metformin 500 mg tablet 500 mg PO BID RF: 0 multivitamin Tablet 1 tab PO QAM RF: 0 Laxative (sennosides) 15 mg tablet 15 mg PO QDAY PRN (Reason: Constipation) RF: 0 wbwbswk-gnhrdhosy-tsdr Tablet 1 tab PO DAILY RF: 0 nitroglycerin 0.4 mg tablet, sublingual 0.4 mg SUBLINGUAL Q5M PRN (Reason: Chest Pain) RF: 0 famotidine 20 mg tablet 20 mg PO BID RF: 0 albuterol sulfate [Ventolin HFA] 90 mcg/actuation HFA aerosol inhaler 2 puff INHALATION Q6H PRN (Reason: Shortness Of Breath) RF: 0 Symbicort 160-4.5 mcg/actuation HFA aerosol inhaler 2 puff INHALATION BID RF: 0 sildenafil [Viagra] 100 mg tablet 100 mg PO QDAY PRN (Reason: ERECTILE DIS) RF: 0 fluoxetine 20 mg capsule 20 mg PO BID Qty: 60 RF: 5 omeprazole 20 mg capsule,delayed release(DR/EC) 20 mg PO DAILY Qty: 30 RF: 6 fenofibrate nanocrystallized 145 mg tablet 145 mg PO .noon Qty: 30 RF: 0 Eliquis 5 mg tablet 5 mg PO BID 90 Days Qty: 180 RF: 0 lidocaine 4 % adhesive patch,medicated 1 patch TOPICAL DAILY PRN (Reason: pain) Qty: 1 RF: 0 oxycodone 10 mg tablet 10 mg PO Q6H PRN (Reason: pain) Qty: 0 RF: 0 Changed Lasix 20 mg tablet 40 mg PO BID PRN (Reason: CHF) 30 Days Qty: 60 RF: 0 potassium chloride 20 mEq packet 40 meq PO DAILY Qty: 30 RF: 0 Discontinued ibuprofen 200 mg Tablet 400 mg PO Q12H PRN (Reason: mild/mod pain or temp >/= 101) Qty: 0 RF: 0 Discharge Orders: Discharge Order (Routine); Ordered 01/25/20 Ordered By: Quin Valentin Other Ambulatory Orders: Comprehensive Metabolic Panel (Routine) Timeframe: 1 Week Facility: [facility] - Location: Lab - Main Lab Ordered By: Quin Valentin Referrals: [facility] [facility] ([facility]) [Outside] Keith Rutledge DO [Primary Care Provider] - (You have a hospital followup with Dr. Rutledge at [facility] on January 31 at 10:00am) Janiya Guidry MD [Physician] - 4-7 days (You have a cardiology followup with Dr. Guidry at [facility] on January 28 at 9:00 am) Discharge Diet: Usual diet and Diabetic Discharge Activity: Resume usual activity and Oxygen as instructed Discharge Attestations Time Spent in Discharge Care*: greater than 30 min Status at Discharge: Cognitive status at discharge: cognitively intact, Behavioral status at discharge: cooperative, Quality Metrics Clinical Quality Measures During this hospital stay, did patient experience: None Coding Level of Care Code Acute Spotter Driver for Chg Fwd Diagnoses Acute exacerbation of CHF (congestive heart failure) I50.9 Heart failure type: unspecified Acute exacerbation of chronic obstructive airways disease J44.1 Hypertensive emergency I16.1 Acute respiratory acidosis E87.2 BRIDGET (acute kidney injury) N17.9 Personal history of coronary artery disease Z86.79 Ischemic cardiomyopathy I25.5 Polycythemia D75.1
[2020-01-25 16:46] LABS: Glucose Point of Care 111 mg/dL (70-110)
== END 2020-01-25 18:26 | disposition home or self-care (01) | DRG 291 ==
LOC: ER 01-22 02:41 → CSU 01-22 02:46
PROVIDERS: Admitting Provider Internal Medicine; Emergency Provider Emergency Medicine; PCP Family Medicine; Visit Provider Student in an Organized Health Care Education/Training Program
DX: I11.0 Hypertensive heart disease with heart failure (principal); J96.22 Acute and chronic respiratory failure with hypercapnia; I16.1 Hypertensive emergency; N17.9 Acute kidney failure, unspecified; E87.2 Acidosis; I50.23 Acute on chronic systolic (congestive) heart failure; D75.1 Secondary polycythemia; I25.5 Ischemic cardiomyopathy; I25.10 Atherosclerotic heart disease of native coronary artery without angina pectoris; J44.9 Chronic obstructive pulmonary disease, unspecified; Z86.711 Personal history of pulmonary embolism; Z79.01 Long term (current) use of anticoagulants; Z91.81 History of falling; I25.2 Old myocardial infarction; E11.9 Type 2 diabetes mellitus without complications; Z79.84 Long term (current) use of oral hypoglycemic drugs; Z20.828 Contact with and (suspected) exposure to other viral communicable diseases; I71.4 Abdominal aortic aneurysm, without rupture; J43.9 Emphysema, unspecified; E78.5 Hyperlipidemia, unspecified; K21.9 Gastro-esophageal reflux disease without esophagitis; F17.210 Nicotine dependence, cigarettes, uncomplicated; Z95.5 Presence of coronary angioplasty implant and graft
CPT/HCPCS: 12345; 36415; 36416; 36600; 71045; 80048; 80051; 80053; 80061; 82803; 82810; 82962; 83036; 83605; 83690; 83735; 83880; 83986; 84484; 85025; 85610; 87040; 87426; 93005; 93970; 94640; 94660; 96372; 96375; 97110; 97116; 97161; 97530; 99284; J1815; J1940; J2930; J3490; J7614